=== PATIENT | female | born 1980 | race Caucasian/White ===

== ENCOUNTER 2024-02-26 23:26 | Inpatient (IN) | payer OTHER ==
[~2024-02-26 23:26] MED LIST: AMIODARONE 50 MG/ML 3 ML VIAL IV ONE; DEXTROSE 5% IN WATER 250 ML BAG ONE; EPINEPHrine 10 ML SYRINGE (0.1 MG/ML) ONE; NOREPINEPHRINE 1 MG/ML 4 ML VIAL IV ONE; SODIUM BICARB 8.4% 50 ML SYR (1 MEQ/ML) ONE; SODIUM CHLORIDE 0.9% 250 ML BAG ONE
[2024-02-26 23:29] LABS: Glucose,Whole Blood 407 mg/dL (70-110)
[2024-02-26] MEDS: SODIUM CHLORIDE 0.9% 500 ML 500 ML IV STA (23:41)
[2024-02-26] MEDS: ASPIRIN 300 MG SUPP RECTAL STA (23:43)
[2024-02-26 23:52] LABS: ALT 224 U/L (4-34); AST 278 U/L (14-36); African American GFR (CKD) 65 (>60 ml/min/1.73 sqM); Albumin 3.8 g/dL (3.5-5.0); Alkaline Phosphatase 64 U/L (38-126); Anion Gap 25 mmol/L; Blood Urea Nitrogen 9 mg/dL (7-17); Calcium 8.7 mg/dL (8.4-10.2); Chloride 109 mmol/L (98-107); Glucose 421 mg/dL (74-99); Non-African American GFR(CKD) 56 (>60 ml/min/1.73 sqM); Sodium 142 mmol/L (137-145); Total Bilirubin 0.4 mg/dL (0.2-1.3); Total Protein 6.2 g/dL (6.3-8.2)
[2024-02-26] MEDS ORDERED: ASPIRIN 300 MG SUPP RECTAL STA (23:53)
[2024-02-26 23:58] LABS: Carbon Dioxide 8 mmol/L (22-30)
[2024-02-27] LABS: Basophils # (A) 0.1 k/uL (0-0.2); Basophils % (A) 1 %; Eosinophils # (A) 0.2 k/uL (0-0.7); Eosinophils % (A) 3 %; HCT 48.6 % (34.0-46.0); HGB 14.3 gm/dL (11.4-16.0); Hypochromasia Marked; Lymphocytes % (A) 59 %; MCH 32.5 pg (25.0-35.0); MCHC 29.5 g/dL (31.0-37.0); MCV 110.2 fL (80.0-100.0); Macrocytosis Marked; Mean Platelet Volume 8.3; Monocytes # (A) 0.4 k/uL (0-1.0); Monocytes % (A) 5 %; Neutrophils # (A) 2.1 k/uL (1.3-7.7); Neutrophils % (A) 30 %; Partial Thromboplastin Time 41.8 sec (22.0-30.0); Platelet Count 189 k/uL (150-450); Prothrombin Time 10.5 sec (10.0-12.5); RBC 4.41 m/uL (3.80-5.40); RDW 13.5 % (11.5-15.5); WBC 6.8 k/uL (3.8-10.6)
[2024-02-27] MEDS: DEXTROSE 5% IN WATER 100 ML with AMIODARONE 150 MG IV ONE
[2024-02-27] MEDS: SODIUM CHLORIDE 0.9% 1,000 ML IV STA (00:13)
[2024-02-27] MEDS: EPINEPHrine 4 MG in DEXTROSE 5% IN WATER 250 ML IV ONE (00:13)
[2024-02-27] MEDS: IV FLUID CONTINUATION 1,000 ML IV ONE (00:13)
[2024-02-27] MEDS: NOREPINEPHRINE 4 MG in SODIUM CHLORIDE 0.9% 250 ML IV ONE (00:13)
[2024-02-27] MEDS: AMIODARONE 360 MG in DEXTROSE 5% IN WATER 200 ML IV ONE (00:13)
--- NOTE | 2024-02-27 00:15 | XR ---
EXAM: XR Chest, 1 View CLINICAL HISTORY: ITS.REASON XR Reason: cardiac arrest status post intubation TECHNIQUE: Frontal view of the chest. COMPARISON: No relevant prior studies available. FINDINGS: Lungs: Bibasilar opacities. Low lung volumes. Pleural space: No acute findings. No pneumothorax. Heart: No cardiomegaly. Bones/joints: No acute osseous abnormality. Tubes, lines and devices: Low-lying ET tube 8 mm above the mireya. This can be retracted 2 cm. Enteric tube coursing into the stomach. IMPRESSION: 1. Low-lying ET tube 8 mm above the mireya. This can be retracted 2 cm. 2. Bibasilar atelectasis/consolidation.
[2024-02-27] MEDS ORDERED: NALOXONE 0.4 MG/ML 1 ML VIAL IV PRN (00:18)
[2024-02-27] MEDS: ASPIRIN 325 MG TAB OG-TUBE ONE (00:23)
[2024-02-27] MEDS: LIDOCAINE 1% INJ 10MG/ML (20 ML MDV) SQ ONE (00:25)
--- NOTE | 2024-02-27 00:25 | CT ---
EXAM: CT Angiography Chest With Intravenous Contrast CLINICAL HISTORY: ITS.REASON CT Reason: Cardiac arrest TECHNIQUE: Axial computed tomographic angiography images of the chest with intravenous contrast. This CT exam was performed using one or more of the following dose reduction techniques: automated exposure control, adjustment of the mA and/or kV according to patient size, and/or use of iterative reconstruction technique. MIP reconstructed images were created and reviewed. COMPARISON: No relevant prior studies available. FINDINGS: Artifacts: Motion artifact. Pulmonary arteries: Enlarged main and central pulmonary arteries. Aorta: No acute findings. No thoracic aortic aneurysm. Lungs: There is some dependent atelectasis/consolidation in the upper and lower lobes. Mild hazy groundglass opacification in the lungs. Low lung volumes. Pleural space: Unremarkable. No significant effusion. No pneumothorax. Heart: Mild coronary artery calcification. Mediastinum: Mediastinal lipomatosis. Bones/joints: No acute fracture. No dislocation. Soft tissues: Unremarkable. Lymph nodes: Unremarkable. No enlarged lymph nodes. Tubes, lines and devices: ET tube 2.3 cm above the mireya. Enteric tube coursing into stomach. IMPRESSION: 1. There is some dependent atelectasis/consolidation in the upper and lower lobes. 2. No pulmonary embolism. 3. Findings suggesting pulmonary arterial hypertension.
[2024-02-27] MEDS: IOPAMIDOL-370 100ML BTL INJ ONE (00:34)
--- NOTE | 2024-02-27 00:42 | P.CARDCATH ---
Date of Procedure: 02/27/24 Description of Procedure: DIAGNOSTIC CORONARY ANGIOGRAPHY and LEFT HEART CATH REPORT PROCEDURES PERFORMED: Left heart catheterization Selective coronary angiography Moderate conscious sedation 9 mins Right radial access INDICATION: [id number] cardiac arrest, ventricular tachycardia, torsades CONSENT: I have explained the procedural steps of above-mentioned procedures in layman's terms to the patient. I discussed the risks (including but not limited to stroke, emergent vascular or cardiac surgery or ), benefits and alternative therapies for the above-mentioned procedure. I discussed the risks of sedation/analgesia and blood product administration (if indicated). The patient has indicated understanding and acceptance of these risks. Conscious Sedation: Patient's ECG, heart rate, blood pressure, pulse oximetry were monitored throughout the duration of procedure under my direct supervision. Patient is on propofol drip and on vent support. No further medications were administered for sedation other than propofol drip.. Total duration of moderate concious sedation 9 minutes. PROCEDURE: After explaining the risks, benefits and alternatives of the above mentioned procedures in detail to the patient, informed consent was obtained. Patient was taken to the catheterization lab, prepped and draped in usual sterile fashion using universal precuations. Ultrasound was used to identify the radial artery. 1% lidocaine was infiltrated over the right radial artery. A 6-Barbadian sheath was placed and secured in the right radial artery using modified Seldinger technique. The sheath was flushed and 5 mg verapamil was administered intra-arterially. J tipped wire was advanced under fluoroscopic guidance. Once the wire tip reached aortic root 6000 units of IV heparin was given. Over the wire JR4 diagnostic catheter was advanced. The wire in place the catheter was manipulated to cross the aortic valve and entered into LV under fluoroscopy guidance. The wire was removed and the catheter was flushed. LV pressures were obtained and pullback was performed under fluoroscopy. Catheter was manipulated to selectively engage the right coronary ostium. Right coronary angiography was performed in different angiographic projections. The JR4 diagnostic catheter was exchanged for a JL 3.5 diagnostic catheter over the J-wire. The wire was removed, catheter was flushed and manipulated under fluoroscopy to selectively engaged the left coronary ostium. Left coronary angioplasty was performed in different angiographic projections. Catheter was removed over the wire. Radial sheath was flushed. The right radial sheath was removed and a TR band was placed with excellent p atent hemostasis was achieved. The patient tolerated the procedure well. Patient was transported back to the post catheterization holding area in stable condition. Angiographic images were reviewed in detail. HEMODYNAMICS: Aortic Pressure: 95/50 mmHg. LV pressure: 98/10 mmHg. LVEDP 24 mmHg. There was no significant gradient across the aortic valve. SELECTIVE CORONARY ARTERIOGRAPHY: LEFT MAIN: The left main is short and large caliber vessel. It bifurcates into the LAD and circumflex. Left main appears angiographically normal. LEFT ANTERIOR DESCENDING CORONARY ARTERY: LAD is a large caliber vessel terminates before reaching the apex. Proximal LAD appears angiographically patent. Mid LAD appears angiographically patent. Distal LAD appears angiographically patent. LAD gives rise to medium diagonal branches appears angiographically patent LEFT CIRCUMFLEX CORONARY ARTERY: It is nondominant vessel. Left circumflex is a moderate caliber vessel. It appears angiographically normal. LCx gives rise to OM branches appears angiographically patent. RIGHT CORONARY ARTERY: Dominant vessel. The right coronary artery is a large caliber vessel which gives PDA and PLV branch. RCA is angiographically patent. It gives rise to a large PDA branch which reaches up to the apex. It is angiographically patent. IMPRESSION: Angiographically patent coronary arteries as described above. Elevated LVEDP Nonischemic ventricular tachycardia [id number] cardiac arrest Torsades PLAN: Vent support and IV pressors. Supportive ICU care Maintain potassium at 4, magnesium at 2. Continue amiodarone drip as per the protocol. Monitor telemetry Obtain echocardiogram Performing Physician Dante Villegas MD, FACC, RPVI Thank you for allowing [facility] to participate in this patient's care. Feel free to reach out in case of any followup questions.
--- NOTE | 2024-02-27 00:56 | ED ---
General Adult HPI - General Chief complaint: Cardiac Arrest/CPR Stated complaint: unresponsive Source: family, EMS, RN notes reviewed, old records reviewed Mode of arrival: EMS Limitations: altered mental status - History of Present Illness Initial comments: 43-year-old female presents as [id number] cardiac arrest. There was prolonged prehospital resuscitation including CPR, BVM with laryngeal mask airway. There was initial rhythm according to EMS was V-fib and the patient did receive multiple shocks. She had intermittent episodes of PEA arrest with an organized rhythm with pulse during transport. There was significant prehospital downtime prior to arrival. Upon arrival the patient is cyanotic with fixed pupils with CPR in progress. No significant reported medical history. It had been reported that the patient had been drinking with friends earlier in the evening she had come home and family had heard her collapse in the other room. Upon arrival there was concern that the patient had vomited and CPR was initiated by the daughter. Paramedics had ventricular V-fib as well as torsades as well as PEA during transport - Related Data Allergies Allergy/AdvReac Type Severity Reaction Status Date / Time Unable to Assess Allergy Verified 02/26/24 23:38 Review of Systems ROS Statement: Those systems with pertinent positive or pertinent negative responses have been documented in the HPI. ROS Other: All systems not noted in ROS Statement are negative. General Exam Limitations: no limitations General appearance: other (Cyanotic, no signs of life) Eye exam: Absent: PERRL (Pupils are fixed and dilated) ENT exam: Present: other (Copious amounts of vomit and retained food in the oropharynx) Respiratory exam: Present: respiratory distress, other (Decreased breath sounds with BVM) Cardiovascular Exam: Present: other (No spontaneous heart sounds) GI/Abdominal exam: Present: distended Neurological exam: Present: other (No spontaneous movement, no spontaneous respiration, no central reflexes) Skin exam: Present: cyanosis Course Vital Signs 02/26/24 02/27/24 02/27/24 23:30 00:32 01:23 Fraction of 100 100 100 Inspired Oxygen (FIO2) 02/27/24 01:30 Fraction of 60 Inspired Oxygen (FIO2) Procedures - [place] Protocol (Time Out) Patient Identification (2 identifiers required): Chart, Verbal, Arm Band, Name, Birthdate Patient/Legal Scaffolding Helper has Confirmed: Identity, Procedure, Consent Site Marked: Not Applicable - Central Line Placement Right Femoral Consent Obtained: emergent situation Patient Placed on Monitor/Pulse Ox: Yes MD Prep: mask, gloves Central Line Prep: Chlorhexidine scrub Ultrasound Used for Placement: No Central Line Lumen Inserted: triple Bloods Obtained for Lab: No Central Line Position: good blood return, all ports aspirated, flushed, capped, sutured in place with nylon Dressing Applied: Tegaderm Patient Tolerated Procedure: well Complications: none - Intubation Laryngoscope: Brian Size: 3 ET Tube Size: 7.5 ET Tube Uncuffed: No Tube Secured Depth (cm): 21 Tube Secured Location: lips Tube Placement Confirmation: visualized tube passing through cords, equal breath sounds bilaterally, no breath sounds over epigastrium, confirmation by capnometry Patient Tolerated Procedure: well Additional Comments: Copious amounts of food and vomit in the airway Medical Decision Making - Medical Decision Making Was pt. sent in by a medical professional or institution (, PA, CUSTOMER SOLUTIONS SUPERVISOR, urgent care, hospital, or long-term...) When possible be specific @ -No Did you speak to anyone other than the patient for history (EMS, parent, family, police, friend...)? What history was obtained from this source @ -No Did you review nursing and triage notes (agree or disagree)? Why? @ -I reviewed and agree with nursing and triage notes Were old charts reviewed (outside hosp., previous admission, EMS record, old EKG, old radiological studies, urgent care reports/EKG's, long-term records)? Report findings @ -No old charts were reviewed Differential Diagnosis (chest pain, altered mental status, abdominal pain women, abdominal pain men, vaginal bleeding, weakness, fever, dyspnea, syncope, headache, dizziness, GI bleed, back pain, seizure, CVA, palpatations, mental hea lth, musculoskeletal)? @ -Not applicable EKG interpreted by me (3pts min.). @ -Initial EKG after ROSC at [address] showing atrial fibrillation with ST segment elevation in aVR and diffuse T wave inversion possible ST segment elevation in lead III ventricular rate of 107, QRS duration 125, QTc 378 X-rays interpreted by me (1pt min.). @ -Single view chest x-ray after intubation shows ET tube within the trachea no pneumothorax present CT interpreted by me (1pt min.). @ -Patient taken for CT brain and CT angiography of the chest prior to Acute Specialist. U/S interpreted by me (1pt. min.). @ -None done What testing was considered but not performed or refused? (CT, X-rays, U/S, labs)? Why? @ -None What meds were considered but not given or refused? Why? @ -None Did you discuss the management of the patient with other professionals (professionals i.e. Dr., PA, CUSTOMER SOLUTIONS SUPERVISOR, lab, RT, psych nurse, social sciences research scientist, local delivery truck driver, teacher, engineering officer, case hardener)? Give summary @Case discussed with the health services director Dr. Villegas, the spring layer Dr. Johnson and the admitting team, Ingrid stout for [facility]. Was smoking cessation discussed for >3mins.? @ -No Was critical care preformed (if so, how long)? @ -40 minutes Were there social determinants of health that impacted care today? How? (Homelessness, low income, unemployed, alcoholism, drug addiction, transportation, low edu. Level, literacy, decrease access to med. care, nursing home, rehab)? @ -No Was there de-escalation of care discussed even if they declined (Discuss DNR or withdrawal of care, Hospice)? DNR status @ -No What co-morbidities impacted this encounter? (DM, HTN, Smoking, COPD, CAD, Cancer, CVA, ARF, Chemo, Hep., AIDS, mental health diagnosis, sleep apnea, morbid obesity)? @ -None Was patient admitted / discharged? Hospital course, mention meds given and route, prescriptions, significant lab abnormalities, going to OR and other pertinent info. @ -43-year-old female with [id number] cardiac arrest. Upon arrival the patient is apneic and pulseless in asystole. CPR is continued with the Sumanth device. Definitive airway is established immediately upon arrival to retained vomit and large amounts of food. Resuscitation is performed with ACLS guidelines. Patient received multiple doses of medication please see the nursing documentation for complete cardiac arrest medications. There is return of spontaneous circulation and organized rhythm, EKG at that time shows diffuse ST segment depression with ST segment elevation in aVR. Given EKG changes and V-fib arrest the Acute Specialist is activated and the patient is taken urgently for heart cath. There is some delay in getting to the Acute Specialist due to a repeat episode of PEA cardiac arrest as well as the need for CT imaging of the brain and chest. Patient requires norepinephrine as well as epinephrine for blood pressure support. Family is informed of the poor prognosis. Undiagnosed new problem with uncertain prognosis? @ -No Drug Therapy requiring intensive monitoring for toxicity (Heparin, Nitro, Insulin, Cardizem)? @ -No Were any procedures done? @ -[Yes, intubation and central line Diagnosis/symptom? @ -Cardiac arrest, V-fib, torsades, PEA with aspiration Acute, or Chronic, or Acute on Chronic? @ -[Acute Uncomplicated (without systemic symptoms) or Complicated (systemic symptoms)? @ -[Complicated Side effects of treatment? @ -[No Exacerbation, Progression, or Severe Exacerbation? @ -No Poses a threat to life or bodily function? How? (Chest pain, USA, IA, pneumonia, PE, COPD, DKA, ARF, appy, cholecystitis, CVA, Diverticulitis, Homicidal, Suicidal, threat to staff... and all critical care pts) @ -Yes, prolonged [id number] cardiac arrest. - Lab Data Result diagrams: 02/26/24 23:28 02/26/24 23:28 Lab Results 02/26/24 02/26/24 02/26/24 Range/Units 23:28 23:28 23:28 WBC 6.8 (3.8-10.6) k/uL RBC 4.41 (3.80-5.40) m/uL Hgb 14.3 (11.4-16.0) gm/dL Hct 48.6 H (34.0-46.0) % MCV 110.2 H (80.0-100.0) fL MCH 32.5 (25.0-35.0) pg MCHC 29.5 L (31.0-37.0) g/dL RDW 13.5 (11.5-15.5) % Plt Count 189 (150-450) k/uL MPV 8.3 Neutrophils % 30 % Lymphocytes % 59 % Monocytes % 5 % Eosinophils % 3 % Basophils % 1 % Neutrophils # 2.1 (1.3-7.7) k/uL Lymphocytes # 4.0 (1.0-4.8) k/uL Monocytes # 0.4 (0-1.0) k/uL Eosinophils # 0.2 (0-0.7) k/uL Basophils # 0.1 (0-0.2) k/uL Manual Slide Review Performed Polychromasia Present Hypochromasia Marked Macrocytosis Marked A Tear Drop Cells Present PT 10.5 (10.0-12.5) sec INR 1.0 (<1.2) APTT 41.8 H (22.0-30.0) sec Sodium (137-145) mmol/L Potassium (3.5-5.1) mmol/L Chloride (98-107) mmol/L Carbon Dioxide (22-30) mmol/L Anion Gap mmol/L BUN (7-17) mg/dL Creatinine (0.52-1.04) mg/dL Est GFR (CKD-EPI)AfAm (>60 ml/min/1.73 sqM) Est GFR (CKD-EPI)NonAf (>60 ml/min/1.73 sqM) Glucose (74-99) mg/dL POC Glucose (mg/dL) 407 H (70-110) mg/dL POC Glu Statistician Applied ID Jose David Tirado Calcium (8.4-10.2) mg/dL Magnesium (1.6-2.3) mg/dL Total Bilirubin (0.2-1.3) mg/dL AST (14-36) U/L ALT (4-34) U/L Alkaline Phosphatase (38-126) U/L Troponin I (0.000-0.034) ng/mL Total Protein (6.3-8.2) g/dL Albumin (3.5-5.0) g/dL 02/26/24 02/26/24 Range/Units 23:28 23:28 WBC (3.8-10.6) k/uL RBC (3.80-5.40) m/uL Hgb (11.4-16.0) gm/dL Hct (34.0-46.0) % MCV (80.0-100.0) fL MCH (25.0-35.0) pg MCHC (31.0-37.0) g/dL RDW (11.5-15.5) % Plt Count (150-450) k/uL MPV Neutrophils % % Lymphocytes % % Monocytes % % Eosinophils % % Basophils % % Neutrophils # (1.3-7.7) k/uL Lymphocytes # (1.0-4.8) k/uL Monocytes # (0-1.0) k/uL Eosinophils # (0-0.7) k/uL Basophils # (0-0.2) k/uL Manual Slide Review Polychromasia Hypochromasia Macrocytosis Tear Drop Cells PT (10.0-12.5) sec INR (<1.2) APTT (22.0-30.0) sec Sodium 142 (137-145) mmol/L Potassium 4.0 (3.5-5.1) mmol/L Chloride 109 H (98-107) mmol/L Carbon Dioxide 8 L* (22-30) mmol/L Anion Gap 25 mmol/L BUN 9 (7-17) mg/dL Creatinine 1.19 H (0.52-1.04) mg/dL Est GFR (CKD-EPI)AfAm 65 (>60 ml/min/1.73 sqM) Est GFR (CKD-EPI)NonAf 56 (>60 ml/min/1.73 sqM) Glucose 421 H (74-99) mg/dL POC Glucose (mg/dL) (70-110) mg/dL POC Glu Statistician Applied ID Calcium 8.7 (8.4-10.2) mg/dL Magnesium 5.0 H* (1.6-2.3) mg/dL Total Bilirubin 0.4 (0.2-1.3) mg/dL AST 278 H (14-36) U/L ALT 224 H (4-34) U/L Alkaline Phosphatase 64 (38-126) U/L Troponin I 0.039 H* (0.000-0.034) ng/mL Total Protein 6.2 L (6.3-8.2) g/dL Albumin 3.8 (3.5-5.0) g/dL Critical Care Time Critical Care Time: Yes Total Critical Care Time: 40 Disposition Clinical Impression: Cardiac arrest, Ventricular fibrillation, Respiratory failure Disposition: ADMITTED IP TO THIS HOSP Condition: Serious Is patient prescribed a controlled substance at d/c from ED?: No Time of Disposition: 00:20
[2024-02-27 01:01] LABS: Glucose,Whole Blood 383 mg/dL (70-110)
--- NOTE | 2024-02-27 01:04 | P.CRDCN ---
History of Present Illness Consult date: 02/27/24 History of present illness: HISTORY OF PRESENTING ILLNESS Patient is a 43-year-old female with past medical history of ovarian cyst, recently dealing with abdominal pain, obesity, family history of premature coronary artery disease in father, no other cardiovascular history was presented to [facility] for [id number] cardiac arrest. History is obtained from the patient's daughter. Patient's daughter reports that lately patient has been significantly under stress from work. For last couple of days she has been complaining of abdominal pain. She was recently diagnosed with ovarian cyst which was managed conservatively. Today in the evening she went out to have drinks with her friends. When she came back she had some more wine at home. Apparently patient was in the kitchen and patient's daughter was in her room. Patient's daughter heard a thump so she went to the kitchen to find that the patient was lying on the floor and started vomiting. The daughter activated the EMS, made her left lateral and started doing CPR. Apparently the downtime was around 35 to 40 minutes. EMS was able to get a pulse after 1 round of defibrillation, ACLS and mechanical chest compressions. In route to EMS she had a torsades for which she received magnesium and defibrillation. EMS rhythm strip shows torsades EMS ECG after the torsade shows sinus rhythm with elevated J-point. ECG in the hospital shows diffuse ST depressions with ST elevations in aVR and lead III. CT head did not show any brain bleed. CT chest did not show any saddle pulm embolism. Chest x-ray did not show widened mediastinum. Cardiology was consulted, patient was evaluated on an emergent basis and was taken to [facility]. REVIEW OF SYSTEMS Could not be obtained as patient is intubated and sedated PHYSICAL EXAMINATION Vital signs reviewed. Head: Normocephalic. Eyes: Sclerae nonicteric. Neck: Brisk carotid upstroke, no jugular venous distention. Lungs: ET tube in place, vent support, appropriate air entry in bilateral lung benavides Heart: Regular rate and rhythm, S1-S2 audible, no murmur or rub. Abdomen: Soft nontender, positive bowel sounds. Extremities: No edema, intact distal pulses. Neuro: Under sedation. Detailed neuro exam was not performed. ASSESSMENT Gaj-aw-rryvmhab cardiac arrest with prolonged downtime of 30 to 40 minutes Ventilator dependent respiratory failure Aspiration pneumonia from vomiting Pulseless ventricular tachycardia, likely hypoxia and acidosis driven Torsades De Pointes Ovarian cyst with abdominal pain for last few days Alcohol use before cardiac arrest. PLAN Plan for emergent cardiac authorization Further recommendations to follow Dante Villegas MD, FACC, RPVI Medications and Allergies Allergies Allergy/AdvReac Type Severity Reaction Status Date / Time Unable to Assess Allergy Verified 02/26/24 23:38 Physical Exam Vitals: Vital Signs FiO2 02/27/24 00:32 100 02/26/24 23:30 100 Intake and Output 02/26/24 02/26/24 02/27/24 14:59 22:59 06:59 Other: Weight 97 kg Results 02/26/24 23:28 02/26/24 23:28 Cardiac Enzymes 02/26/24 02/26/24 02/26/24 Range/Units 23:28 23:28 23:28 WBC 6.8 (3.8-10.6) k/uL RBC 4.41 (3.80-5.40) m/uL Hgb 14.3 (11.4-16.0) gm/dL Hct 48.6 H (34.0-46.0) % MCV 110.2 H (80.0-100.0) fL MCH 32.5 (25.0-35.0) pg MCHC 29.5 L (31.0-37.0) g/dL RDW 13.5 (11.5-15.5) % Plt Count 189 (150-450) k/uL MPV 8.3 Hypochromasia Marked Macrocytosis Marked A PT 10.5 (10.0-12.5) sec INR 1.0 (<1.2) APTT 41.8 H (22.0-30.0) sec Sodium (137-145) mmol/L Potassium (3.5-5.1) mmol/L Chloride (98-107) mmol/L Carbon Dioxide (22-30) mmol/L Anion Gap mmol/L BUN (7-17) mg/dL Creatinine (0.52-1.04) mg/dL Est GFR (CKD-EPI)AfAm (>60 ml/min/1.73 sqM) Est GFR (CKD-EPI)NonAf (>60 ml/min/1.73 sqM) Glucose (74-99) mg/dL POC Glucose (mg/dL) 407 H (70-110) mg/dL POC Glu [place] ID [facility] [place] Calcium (8.4-10.2) mg/dL Magnesium (1.6-2.3) mg/dL Total Bilirubin (0.2-1.3) mg/dL AST (14-36) U/L ALT (4-34) U/L Alkaline Phosphatase (38-126) U/L Troponin I (0.000-0.034) ng/mL Total Protein (6.3-8.2) g/dL Albumin (3.5-5.0) g/dL 02/26/24 02/26/24 Range/Units 23:28 23:28 WBC (3.8-10.6) k/uL RBC (3.80-5.40) m/uL Hgb (11.4-16.0) gm/dL Hct (34.0-46.0) % MCV (80.0-100.0) fL MCH (25.0-35.0) pg MCHC (31.0-37.0) g/dL RDW (11.5-15.5) % Plt Count (150-450) k/uL MPV Hypochromasia Macrocytosis PT (10.0-12.5) sec INR (<1.2) APTT (22.0-30.0) sec Sodium 142 (137-145) mmol/L Potassium 4.0 (3.5-5.1) mmol/L Chloride 109 H (98-107) mmol/L Carbon Dioxide 8 L* (22-30) mmol/L Anion Gap 25 mmol/L BUN 9 (7-17) mg/dL Creatinine 1.19 H (0.52-1.04) mg/dL Est GFR (CKD-EPI)AfAm 65 (>60 ml/min/1.73 sqM) Est GFR (CKD-EPI)NonAf 56 (>60 ml/min/1.73 sqM) Glucose 421 H (74-99) mg/dL POC Glucose (mg/dL) (70-110) mg/dL POC Glu W[place]er ID Calcium 8.7 (8.4-10.2) mg/dL Magnesium 5.0 H* (1.6-2.3) mg/dL Total Bilirubin 0.4 (0.2-1.3) mg/dL AST 278 H (14-36) U/L ALT 224 H (4-34) U/L Alkaline Phosphatase 64 (38-126) U/L Troponin I 0.039 H* (0.000-0.034) ng/mL Total Protein 6.2 L (6.3-8.2) g/dL Albumin 3.8 (3.5-5.0) g/dL Coagulation 02/26/24 Range/Units 23:28 PT 10.5 (10.0-12.5) sec APTT 41.8 H (22.0-30.0) sec CBC 02/26/24 Range/Units 23:28 WBC 6.8 (3.8-10.6) k/uL RBC 4.41 (3.80-5.40) m/uL Hgb 14.3 (11.4-16.0) gm/dL Hct 48.6 H (34.0-46.0) % Plt Count 189 (150-450) k/uL Comprehensive Metabolic Panel 02/26/24 Range/Units 23:28 Sodium 142 (137-145) mmol/L Potassium 4.0 (3.5-5.1) mmol/L Chloride 109 H (98-107) mmol/L Carbon Dioxide 8 L* (22-30) mmol/L BUN 9 (7-17) mg/dL Creatinine 1.19 H (0.52-1.04) mg/dL Glucose 421 H (74-99) mg/dL Calcium 8.7 (8.4-10.2) mg/dL AST 278 H (14-36) U/L ALT 224 H (4-34) U/L Alkaline Phosphatase 64 (38-126) U/L Total Protein 6.2 L (6.3-8.2) g/dL Albumin 3.8 (3.5-5.0) g/dL Current Medications Generic Name Dose Route Start Last Admin Trade Name Freq PRN Reason Stop Dose Admin Sodium Chloride 1,000 mls @ 100 mls/hr 02/26/24 23:34 02/27/24 00:13 Saline 0.9% IV 02/27/24 09:33 0 mls .Q10H STA Administration Amiodarone HCl 360 mg/ 200 mls @ 33.333 mls/hr 02/26/24 23:55 02/27/24 00:13 Dextrose/Water IV 02/27/24 05:54 0 mls .Q6H ONE Administration Protocol 1 MG/MIN Amiodarone HCl 450 mg/ 250 mls @ 16.667 mls/hr 02/27/24 06:00 Dextrose/Water IV 02/27/24 23:59 .Q15H EBENEZER Protocol 0.5 MG/MIN Norepinephrine Bitartrate 4 mg 254 mls @ 11.087 mls/hr 02/26/24 23:55 02/27/24 00:13 / Sodium Chloride IV 02/27/24 22:49 0 mls .[id number] ONE Administration Protocol 0.03 MCG/KG/MIN Epinephrine HCl 4 mg/ Dextrose 252 mls @ 11 mls/hr 02/26/24 23:57 02/27/24 00:13 /Water IV 02/27/24 22:51 0 mls .[id number] ONE Administration Protocol 0.03 MCG/KG/MIN Ampicillin Sodium/Sulbactam 100 mls @ 200 mls/hr 02/27/24 00:30 Sodium 3 gm/ Sodium Chloride IVPB Q8HR EBENEZER Protocol Naloxone HCl 0.2 mg 02/27/24 00:18 Naloxone 0.4 Mg/Ml 1 Ml Vial IV Q2M PRN Opioid Reversal Intake and Output 02/26/24 02/26/24 02/27/24 14:59 22:59 06:59 Other: Weight 97 kg Patient Weight 02/27/24 06:59 Weight 97 kg 02/26/24 23:28 02/26/24 23:28
[2024-02-27 01:10] LABS: Polychromasia Present; Tear Drop Cells Present
[2024-02-27 01:15] LABS: ABG HCO3 11 mmol/L (21-25); ABG Oxygen Saturation 96.2 % (94-97); ABG PCO2 54 mmHg (35-45); ABG PO2 134 mmHg (83-108); ABG TCO2 13 mmol/L (19-24); Allen Test Performed? Yes
[2024-02-27 01:19] LABS: ABG PH 6.91 (7.35-7.45)
[2024-02-27] MEDS: SODIUM BICARB 8.4% 50 ML SYR (1 MEQ/ML) IV STA (01:43)
[2024-02-27] MEDS: EPINEPHrine 4 MG in DEXTROSE 5% IN WATER 250 ML IV SCH (01:50)
[2024-02-27] MEDS: NOREPINEPHRINE 4 MG in SODIUM CHLORIDE 0.9% 250 ML IV SCH (01:51)
[2024-02-27] MEDS: NOREPINEPHRINE 32 MG in SODIUM CHLORIDE 0.9% 218 ML IV SCH (02:00)
[2024-02-27 02:16] LABS: HCT 43.9 % (34.0-46.0); HGB 13.6 gm/dL (11.4-16.0); Hypochromasia Marked; MCH 32.2 pg (25.0-35.0); MCHC 30.9 g/dL (31.0-37.0); Macrocytosis Slight; Mean Platelet Volume 7.7; Platelet Count 237 k/uL (150-450); RBC 4.22 m/uL (3.80-5.40); RDW 13.4 % (11.5-15.5)
[2024-02-27] MEDS: AMPICILLIN-SULBACTAM 3 GM in SODIUM CHLORIDE 0.9% 100 ML IVPB SCH (02:33)
[2024-02-27 02:46] LABS: Magnesium 4.3 mg/dL (1.6-2.3)
[2024-02-27 02:47] LABS: ALT 461 U/L (4-34); AST 719 U/L (14-36); African American GFR (CKD) 56 (>60 ml/min/1.73 sqM); Albumin 3.3 g/dL (3.5-5.0); Alkaline Phosphatase 187 U/L (38-126); Anion Gap 23 mmol/L; Blood Urea Nitrogen 11 mg/dL (7-17); Calcium 7.2 mg/dL (8.4-10.2); Carbon Dioxide 12 mmol/L (22-30); Chloride 104 mmol/L (98-107); Glucose 393 mg/dL (74-99); MCV 104.1 fL (80.0-100.0); Non-African American GFR(CKD) 49 (>60 ml/min/1.73 sqM); Potassium 3.8 mmol/L (3.5-5.1); Sodium 139 mmol/L (137-145); Total Bilirubin 0.3 mg/dL (0.2-1.3); Total Protein 5.7 g/dL (6.3-8.2)
[2024-02-27] MEDS: VASOPRESSIN 20 UNIT in SODIUM CHLORIDE 0.9% 50 ML IV SCH (03:48)
[2024-02-27 04:12] LABS: Band Neutrophils % 2 %; Eosinophils # (M) 0.64 k/uL (0-0.7); Lymphocytes # (M) 10.27 k/uL (1.0-4.8); Monocytes # (M) 0.64 k/uL (0-1.0); Myelocytes # (M) 0.21 k/uL (0); Myelocytes % 1 %; Neutrophils % (M) 46 %; Nucleated Red Blood Cells 1 /100 WBC (0-0); Total Cells Counted 200; WBC 21.4 k/uL (3.8-10.6)
[2024-02-27 04:14] LABS: Tear Drop Cells Present
[2024-02-27] MEDS: AMIODARONE 450 MG in DEXTROSE 5% IN WATER 250 ML IV SCH (05:45)
[2024-02-27 06:12] LABS: ABG Base Excess -15.3 mmol/L; ABG HCO3 16 mmol/L (21-25); ABG Oxygen Saturation 77.3 % (94-97); ABG PCO2 57 mmHg (35-45); ABG TCO2 18 mmol/L (19-24); Allen Test Performed? Yes
[2024-02-27 06:13] LABS: NT-Pro-B-Type Natriuretic Pept 111 pg/mL
[2024-02-27 06:15] LABS: African American GFR (CKD) 47 (>60 ml/min/1.73 sqM); Anion Gap 19 mmol/L; Blood Urea Nitrogen 14 mg/dL (7-17); Calcium 6.9 mg/dL (8.4-10.2); Carbon Dioxide 14 mmol/L (22-30); Chloride 104 mmol/L (98-107); Magnesium 3.6 mg/dL (1.6-2.3); Non-African American GFR(CKD) 41 (>60 ml/min/1.73 sqM); Potassium 2.9 mmol/L (3.5-5.1); Sodium 137 mmol/L (137-145)
[2024-02-27 06:31] LABS: ABG PH 7.05 (7.35-7.45)
[2024-02-27 06:31] LABS: Glucose 527 mg/dL (74-99)
[2024-02-27 06:32] LABS: ABG PO2 55 mmHg (83-108)
[2024-02-27] MEDS ORDERED: DEXTROSE 50% SYRINGE 50 ML IVP PRN ×2 (06:40)
[2024-02-27] MEDS: DEXTROSE 5% IN WATER 1,000 ML with SODIUM BICARB (1 MEQ/ML) 150 ML IV SCH (07:04)
--- NOTE | 2024-02-27 07:08 | CT ---
EXAM: CT Head Without Intravenous Contrast CLINICAL HISTORY: carduac arrest TECHNIQUE: Axial computed tomography images of the head/brain without intravenous contrast. CTDI is 49.1 mGy and DLP is 1106.2 mGy-cm. This CT exam was performed using one or more of the following dose reduction techniques: automated exposure control, adjustment of the mA and/or kV according to patient size, and/or use of iterative reconstruction technique. COMPARISON: No relevant prior studies available. FINDINGS: Brain: Diffuse loss of ochoa-white differentiation in the cerebrum. No hemorrhage. Ventricles: No acute findings. No ventriculomegaly. Bones/joints: Unremarkable. No acute fracture. Soft tissues: Unremarkable. Sinuses: Mucosal thickening ethmoid air cells, maxillary sinuses and sphenoid sinuses. Mastoid air cells: Unremarkable as visualized. No mastoid effusion. IMPRESSION: Evidence of severe diffuse hypoxic ischemic injury.
[2024-02-27 07:15] LABS: Appearance,Urine Cloudy (Clear); Bacteria,Urine Rare /hpf; Bilirubin,Urine Negative (Negative); Blood,Urine Moderate (Negative); Color,Urine Colorless; Glucose,Urine (UA) 3+ (Negative); Hyphae Yeast, Urine Rare /hpf; Ketones,Urine Negative (Negative); Leukocyte Esterase,Urine Negative (Negative); Mucus,Urine Rare /hpf; Nitrite,Urine Negative (Negative); Protein,Urine 2+ (Negative); RBC,Urine 5 /hpf (0-5); Renal Epithelial Cells,Urine 6 /hpf (0); Specific Gravity,Urine 1.014 (1.001-1.035); Squamous Epithelial Cell,Urine <1 /hpf (0-4); Urobilinogen,Urine <2.0 mg/dL (<2.0); WBC,Urine 7 /hpf (0-5)
[2024-02-27] MEDS ORDERED: Magnesium Replacement Protocol 1 EACH MISC MISCELLANE PRN (07:28)
[2024-02-27] MEDS ORDERED: Potassium Replacement Protocol 1 EACH MISC MISCELLANE PRN (07:28)
--- NOTE | 2024-02-27 07:44 | P.PN ---
Subjective Progress Note Date: 02/27/24 PROGRESS NOTE The patient is a 43-year-old female with a history of smoking who presented with cardiac arrest, ventricle fibrillation and torsade. She is intubated. She underwent coronary angiography yesterday by Dr. Villegas and had no evidence of obstructive CAD. She is on norepinephrine,, vasopressin, IV amiodarone. I spoke to her family and the patient has no prior cardiac history and no history of drug use. She is a smoker and drinks about 1 to 2 glasses of chaparro a day with no changes. She has no history of documented arrhythmia in the past. She has a family history of CAD. Her downtime was estimated to be 35 to 40 minutes. Her urinary output has been poor Medications: IV vasopressin, IV amiodarone, norepinephrine, PHYSICAL EXAMINATION: Blood pressure 115/60 heart rate 104, intubated LUNGS: Clear to auscultation HEART: Regular rate and rhythm, S1, S2. No S3. No systolic murmur ABDOMEN: Soft, nontender, no organomegaly EXTREMETIES: No edema, right radial catheter noted LAB: pH yesterday 6.9 earlier this morning 7.05. Hemoglobin 13.6. Potassium 2.9, BUN 14, creatinine 1.56. Plasma lactic acid 10.4. AST 719, ALT 461. CT scan of the head showed evidence of severe diffuse hypoxic ischemic injury IMPRESSION: 1. [id number] cardiac arrest with prolonged downtime and evidence of ventricular fibrillation and torsades. Etiology unclear, no evidence of obstructive coronary disease 2. Respiratory failure 3. Severe acidosis 4. Acute kidney injury 5. Acute liver injury 6. History of smoking PLAN: 1. Continue supportive care 2. Obtain an echocardiogram with Doppler 3. Follow renal functions 4. Continue IV amiodarone 5. Obtain neuroconsultation 6. Discussed the findings with her family 7. Prognosis is poor because of the acidosis and the prolonged downtime Objective - Vital Signs Vital signs: Vital Signs Temp 92.3 F L 02/27/24 05:00 Pulse 104 H 02/27/24 07:00 Resp 30 H 02/27/24 07:00 BP 77/26 02/27/24 07:00 Pulse Ox 83 L 02/27/24 07:00 FiO2 100 02/27/24 05:00 Intake & Output 02/26/24 02/27/24 02/27/24 18:59 06:59 18:59 Intake Total 1396.197 315.922 Output Total 40 0 Balance 1356.197 315.922 Weight 98.3 kg Intake: IV 476 3 pressure bag 12 3 Intake, IV Titration 920.197 312.922 Amount Ampicillin-Sulbactam 3 gm 100 In Sodium Chloride 0.9% 100 ml @ 200 mls/hr IVPB Q8HR EBENEZER Rx#:[id number] Dextrose 5% in Water 1, 75 000 ml @ 75 mls/hr IV . [id number] EBENEZER with Sodium Bicarb (1 Meq/ml) 150 ml Rx#:[id number] EPINEPHrine 4 mg In 295.469 137.922 Dextrose 5% in Water 250 ml @ 0.03 MCG/KG/MIN 10. 913 mls/hr IV .[id number] EBENEZER Rx#:[id number] Norepinephrine 32 mg In 13.641 Sodium Chloride 0.9% 218 ml @ 0.03 MCG/KG/MIN 1. 364 mls/hr IV .Q24H EBENEZER Rx#:[id number] Norepinephrine 4 mg In 11.087 Sodium Chloride 0.9% 250 ml @ 0.03 MCG/KG/MIN 11. 087 mls/hr IV .[id number] EBENEZER Rx#:[id number] Sodium Chloride 0.9% 1, 500 100 000 ml @ 100 mls/hr IV . Q10H STA Rx#:[id number] Output: Urine 40 0 Other: Voiding Method Indwelling Catheter ABP, PAP, CO, CI - Last Documented Arterial Blood Pressure 115/62 - Labs CBC & Chem 7: 02/27/24 01:59 02/27/24 05:30 Labs: Abnormal Lab Results - Last 24 Hours (Table) 02/26/24 02/26/24 02/26/24 Range/Units 23:28 23:28 23:28 WBC (3.8-10.6) k/uL Hct 48.6 H (34.0-46.0) % MCV 110.2 H (80.0-100.0) fL MCHC 29.5 L (31.0-37.0) g/dL Neutrophils # (Manual) (1.3-7.7) k/uL Lymphocytes # (Manual) (1.0-4.8) k/uL Myelocytes # (Manual) (0) k/uL Nucleated RBCs (0-0) /100 WBC Macrocytosis Marked A APTT 41.8 H (22.0-30.0) sec ABG pH (7.35-7.45) ABG pCO2 (35-45) mmHg ABG pO2 (83-108) mmHg ABG HCO3 (21-25) mmol/L ABG Total CO2 (19-24) mmol/L ABG O2 Saturation (94-97) % Potassium (3.5-5.1) mmol/L Chloride (98-107) mmol/L Carbon Dioxide (22-30) mmol/L Creatinine (0.52-1.04) mg/dL Glucose (74-99) mg/dL POC Glucose (mg/dL) 407 H (70-110) mg/dL Plasma Lactic Acid Reginald (0.7-2.0) mmol/L Calcium (8.4-10.2) mg/dL Magnesium (1.6-2.3) mg/dL AST (14-36) U/L ALT (4-34) U/L Alkaline Phosphatase (38-126) U/L Troponin I (0.000-0.034) ng/mL Total Protein (6.3-8.2) g/dL Albumin (3.5-5.0) g/dL Urine Appearance (Clear) Urine Protein (Negative) Urine Glucose (UA) (Negative) Urine Blood (Negative) Urine WBC (0-5) /hpf Urine Bacteria (None) /hpf Urine Mucus (None) /hpf 02/26/24 02/26/24 02/27/24 Range/Units 23:28 23:28 00:59 WBC (3.8-10.6) k/uL Hct (34.0-46.0) % MCV (80.0-100.0) fL MCHC (31.0-37.0) g/dL Neutrophils # (Manual) (1.3-7.7) k/uL Lymphocytes # (Manual) (1.0-4.8) k/uL Myelocytes # (Manual) (0) k/uL Nucleated RBCs (0-0) /100 WBC Macrocytosis APTT (22.0-30.0) sec ABG pH (7.35-7.45) ABG pCO2 (35-45) mmHg ABG pO2 (83-108) mmHg ABG HCO3 (21-25) mmol/L ABG Total CO2 (19-24) mmol/L ABG O2 Saturation (94-97) % Potassium (3.5-5.1) mmol/L Chloride 109 H (98-107) mmol/L Carbon Dioxide 8 L* (22-30) mmol/L Creatinine 1.19 H (0.52-1.04) mg/dL Glucose 421 H (74-99) mg/dL POC Glucose (mg/dL) 383 H (70-110) mg/dL Plasma Lactic Acid Regniald (0.7-2.0) mmol/L Calcium (8.4-10.2) mg/dL Magnesium 5.0 H* (1.6-2.3) mg/dL AST 278 H (14-36) U/L ALT 224 H (4-34) U/L Alkaline Phosphatase (38-126) U/L Troponin I 0.039 H* (0.000-0.034) ng/mL Total Protein 6.2 L (6.3-8.2) g/dL Albumin (3.5-5.0) g/dL Urine Appearance (Clear) Urine Protein (Negative) Urine Glucose (UA) (Negative) Urine Blood (Negative) Urine WBC (0-5) /hpf Urine Bacteria (None) /hpf Urine Mucus (None) /hpf 02/27/24 02/27/24 02/27/24 Range/Units 01:14 01:59 01:59 WBC 21.4 H (3.8-10.6) k/uL Hct (34.0-46.0) % MCV 104.1 H D (80.0-100.0) fL MCHC 30.9 L (31.0-37.0) g/dL Neutrophils # (Manual) 10.20 H (1.3-7.7) k/uL Lymphocytes # (Manual) 10.27 H (1.0-4.8) k/uL Myelocytes # (Manual) 0.21 H (0) k/uL Nucleated RBCs 1 H (0-0) /100 WBC Macrocytosis APTT (22.0-30.0) sec ABG pH 6.91 L* (7.35-7.45) ABG pCO2 54 H (35-45) mmHg ABG pO2 134 H (83-108) mmHg ABG HCO3 11 L (21-25) mmol/L ABG Total CO2 13 L (19-24) mmol/L ABG O2 Saturation (94-97) % Potassium (3.5-5.1) mmol/L Chloride (98-107) mmol/L Carbon Dioxide (22-30) mmol/L Creatinine (0.52-1.04) mg/dL Glucose (74-99) mg/dL POC Glucose (mg/dL) (70-110) mg/dL Plasma Lactic Acid Reginald (0.7-2.0) mmol/L Calcium (8.4-10.2) mg/dL Magnesium 4.3 H (1.6-2.3) mg/dL AST (14-36) U/L ALT (4-34) U/L Alkaline Phosphatase (38-126) U/L Troponin I (0.000-0.034) ng/mL Total Protein (6.3-8.2) g/dL Albumin (3.5-5.0) g/dL Urine Appearance (Clear) Urine Protein (Negative) Urine Glucose (UA) (Negative) Urine Blood (Negative) Urine WBC (0-5) /hpf Urine Bacteria (None) /hpf Urine Mucus (None) /hpf 02/27/24 02/27/24 02/27/24 Range/Units 01:59 05:30 05:30 WBC (3.8-10.6) k/uL Hct (34.0-46.0) % MCV (80.0-100.0) fL MCHC (31.0-37.0) g/dL Neutrophils # (Manual) (1.3-7.7) k/uL Lymphocytes # (Manual) (1.0-4.8) k/uL Myelocytes # (Manual) (0) k/uL Nucleated RBCs (0-0) /100 WBC Macrocytosis APTT (22.0-30.0) sec ABG pH (7.35-7.45) ABG pCO2 (35-45) mmHg ABG pO2 (83-108) mmHg ABG HCO3 (21-25) mmol/L ABG Total CO2 (19-24) mmol/L ABG O2 Saturation (94-97) % Potassium 2.9 L (3.5-5.1) mmol/L Chloride (98-107) mmol/L Carbon Dioxide 12 L 14 L (22-30) mmol/L Creatinine 1.34 H 1.56 H (0.52-1.04) mg/dL Glucose 393 H 527 H* (74-99) mg/dL POC Glucose (mg/dL) (70-110) mg/dL Plasma Lactic Acid Reginald 10.4 H* (0.7-2.0) mmol/L Calcium 7.2 L 6.9 L (8.4-10.2) mg/dL Magnesium 3.6 H (1.6-2.3) mg/dL AST 719 H (14-36) U/L ALT 461 H (4-34) U/L Alkaline Phosphatase 187 H (38-126) U/L Troponin I (0.000-0.034) ng/mL Total Protein 5.7 L (6.3-8.2) g/dL Albumin 3.3 L (3.5-5.0) g/dL Urine Appearance (Clear) Urine Protein (Negative) Urine Glucose (UA) (Negative) Urine Blood (Negative) Urine WBC (0-5) /hpf Urine Bacteria (None) /hpf Urine Mucus (None) /hpf 02/27/24 02/27/24 Range/Units 06:00 06:13 WBC (3.8-10.6) k/uL Hct (34.0-46.0) % MCV (80.0-100.0) fL MCHC (31.0-37.0) g/dL Neutrophils # (Manual) (1.3-7.7) k/uL Lymphocytes # (Manual) (1.0-4.8) k/uL Myelocytes # (Manual) (0) k/uL Nucleated RBCs (0-0) /100 WBC Macrocytosis APTT (22.0-30.0) sec ABG pH 7.05 L* (7.35-7.45) ABG pCO2 57 H (35-45) mmHg ABG pO2 55 L* (83-108) mmHg ABG HCO3 16 L (21-25) mmol/L ABG Total CO2 18 L (19-24) mmol/L ABG O2 Saturation 77.3 L (94-97) % Potassium (3.5-5.1) mmol/L Chloride (98-107) mmol/L Carbon Dioxide (22-30) mmol/L Creatinine (0.52-1.04) mg/dL Glucose (74-99) mg/dL POC Glucose (mg/dL) (70-110) mg/dL Plasma Lactic Acid Reginald (0.7-2.0) mmol/L Calcium (8.4-10.2) mg/dL Magnesium (1.6-2.3) mg/dL AST (14-36) U/L ALT (4-34) U/L Alkaline Phosphatase (38-126) U/L Troponin I (0.000-0.034) ng/mL Total Protein (6.3-8.2) g/dL Albumin (3.5-5.0) g/dL Urine Appearance Cloudy H (Clear) Urine Protein 2+ H (Negative) Urine Glucose (UA) 3+ H (Negative) Urine Blood Moderate H (Negative) Urine WBC 7 H (0-5) /hpf Urine Bacteria Rare H (None) /hpf Urine Mucus Rare H (None) /hpf
[2024-02-27 08:34] LABS: Glucose,Whole Blood 551 mg/dL (70-110)
[2024-02-27] MEDS: INSULIN REGULAR 100 UNIT in SODIUM CHLORIDE 0.9% 100 ML IV SCH (08:35)
[2024-02-27 09:08] LABS: ABG Base Excess -15.7 mmol/L; ABG HCO3 17 mmol/L (21-25); ABG PCO2 70 mmHg (35-45); ABG TCO2 19 mmol/L (19-24); Allen Test Performed? Yes
[2024-02-27 09:11] LABS: ABG PH 6.99 (7.35-7.45)
[2024-02-27] MEDS: SODIUM BICARB 8.4% 50 ML SYR (1 MEQ/ML) IV ONE (09:11)
[2024-02-27 09:12] LABS: ABG PO2 46 mmHg (83-108)
--- NOTE | 2024-02-27 09:12 | XR ---
EXAMINATION TYPE: XR chest 1V portable DATE OF EXAM: 02/27/2024 5:23 AM COMPARISON: None CLINICAL INDICATION: Female, 43 years old with history of Tube placement; [facility] TECHNIQUE: XR chest 1V portable Frontal view of the chest. FINDINGS: Lungs/Pleura: There is no evidence of pleural effusion, focal consolidation, or pneumothorax. Pulmonary vascularity: Unremarkable. Heart/mediastinum: Cardiomediastinal silhouette is unremarkable. Musculoskeletal: No acute osseous pathology. Other findings: None Endotracheal tube 4.8 cm from the mireya. Nasogastric tube in appropriate position. IMPRESSION: 1. Right perihilar airspace opacities correlate for pneumonia. 2. Support tubes in satisfactory position. [facility], , 02/27/2024 9:10 AM
[2024-02-27] MEDS: POTASSIUM CHLORIDE 10 MEQ in WATER FOR INJECTION 1 100ML.BAG IVPB SCH (09:22)
[2024-02-27 09:25] LABS: Glucose,Whole Blood 590 mg/dL (70-110)
[2024-02-27 09:57] LABS: Amphetamine Screen,Urine Not Detected (NotDetected); Barbiturate Screen,Urine Not Detected (NotDetected); Benzodiazepines Screen,Urine Not Detected (NotDetected); Cocaine Screen,Urine Not Detected (NotDetected); Methadone Screen, Urine Not Detected (NotDetected); Opiate Screen,Urine Not Detected (NotDetected); Oxycodone Screen, Urine Not Detected (NotDetected); Phencyclidine Screen,Urine Not Detected (NotDetected); Tricyclic Antidepressant,Urine Not Detected (NotDetected); Urn Cannabinoid Scrn Not Detected (NotDetected)
[2024-02-27] MEDS: EPINEPHrine 16 MG in DEXTROSE 5% IN WATER 250 ML IV SCH (10:07)
[2024-02-27 10:23] LABS: Glucose,Whole Blood 539 mg/dL (70-110)
[2024-02-27 10:59] LABS: Glucose,Whole Blood 529 mg/dL (70-110)
--- NOTE | 2024-02-27 11:28 | P.CNPUL ---
History of Present Illness Consult date: 02/27/24 Requesting physician: Anahi Corrigan Reason for consult: other (Cardiac arrest) Chief complaint: Cardiac arrest History of present illness: This is a 43-year-old female, no significant past medical history except for history of chronic abdominal pain, obesity, family history of premature coronary artery disease/father, patient was brought into the hospital last night with out of the hospital cardiac arrest. The last couple of days, patient had some complaints of abdominal pain her daughter was in the house with her yesterday, and she heard a thump patient was found in the kitchen lying on the floor and vomiting. EMS was called in. And CPR was started upon arrival of EMS was have had a downtime of about 35 to 40 minutes. EMS was able to get a pulse after 1 round of defibrillation. Patient had ACLS and mechanical chest compression in route to the hospital patient had had an episode of torsade received magnesium and defibrillation patient was seen by cardiology on consultation shortly after she arrived to the ER, CT of the head showed significant brain injury patient underwent cardiac catheterization, and she was found to have patent coronaries, no intervention was felt to be necessary. Hence shortly after patient was transferred to the ICU. CT angiogram of the chest showed no evidence of pulmonary embolism, but it was suggestive of possible pulmonary hypertension and aspiration pneumonia. Patient is now in the ICU on mechanical ventilation, she is on assist-control rate of 30 tidal volume 400 FiO2 100% PEEP at 14 showed a pO2 of 46, pCO2 70 pH of 6.99 hence patient tidal volume was increased to 450 respiratory rate increased to 34 patient received sodium bicarb IV push and she was placed on a bicarb drip. Patient has been anuric and she seems to be developing worsening renal picture hence nephrology was consulted. And considering her CT of the brain findings, neurology was consulted. Patient also was noted to have significantly elevated liver enzymes consistent with shock liver. Patient is maximized on pressors for hemodynamic support, she is actually on norepinephrine at 0.5 mcg/kg/min epinephrine 0.5 mcg/kg/min vasopressin at 0.03 she is also on amiodarone at 0.5 mg/min bicarb running at 75 cc/h main IV fluid 0.9 normal saline at 100 cc/h. Patient was also placed on insulin drip for elevated blood sugar in the 500 range. Chest x-ray this morn ing showed tubes in proper positions, she does have right perihilar airspace opacity consistent with pneumonia/most likely aspiration pneumonia. Patient has been initiated on Unasyn drug screen is negative however serum alcohol on presentation was 35. In summary we are dealing with the patient who presented with cardiac arrest, torsade on arrival to the hospital, downtime of 35 to 40 minutes, CT angiogram negative for pulmonary embolism chest x-ray positive for aspiration pneumonia CT of the brain showing severe anoxic brain injury, renal functioning is poor and the patient is anuric patient must have developed acute tubular necrosis and acute kidney injury patient was also noted to have severe metabolic and respiratory acidosis she had poor tolerance to high PEEP she is on maximal pressors, this is felt to be mostly cardiogenic in nature/cardiogenic hypotension, family at bedside and updated on her poor condition Review of Systems ROS unobtainable: due to mental status (According to daughter patient had mostly issues with abdominal pain/intermittent. And has been under a lot of stress recently) Past Medical History Past Medical History: Unable to Obtain History of Any Multi-Drug Resistant Organisms: None Reported Past Surgical History: Unable to Obtain Additional Past Surgical History / Comment(s): ovarian cycst removal Past Anesthesia/Blood Transfusion Reactions: Unable to Obtain Past Psychological History: Unable to Obtain Smoking Status: Current every day smoker Medications and Allergies Home Medications Medication Instructions Recorded Confirmed Type Albuterol Inhaler [Ventolin Hfa 2 puff INHALATION RT-Q4H PRN 02/27/24 02/27/24 History Inhaler] Cetirizine HCl [Zyrtec] 10 mg PO DAILY 02/27/24 02/27/24 History Omeprazole [PriLOSEC] 20 mg PO DAILY 02/27/24 02/27/24 History levonorgestreL [Mirena] 1 implant INTRAUTERI DIRECTED 02/27/24 02/27/24 History Allergies Allergy/AdvReac Type Severity Reaction Status Date / Time Unable to Assess Allergy Verified 02/26/24 23:38 Physical Exam Vitals: Vital Signs Temp Pulse Resp BP Pulse Ox FiO2 02/27/24 11:00 101 H 34 H 70 L 02/27/24 10:45 101 H 34 H 81/48 69 L 02/27/24 10:30 101 H 34 H 70 L 02/27/24 10:15 101 H 34 H 93/66 66 L 02/27/24 10:00 103 H 34 H 74/50 60 L 02/27/24 09:45 102 H 34 H 60 L 02/27/24 09:30 103 H 34 H 77/60 62 L 02/27/24 09:15 103 H 34 H 70 L 02/27/24 09:00 100 30 H 84/67 75 L 02/27/24 08:45 101 H 30 H 81 L 02/27/24 08:30 101 H 30 H 81/57 80 L 02/27/24 08:20 100 02/27/24 08:15 101 H 30 H 85 L 02/27/24 08:00 101 H 30 H 93/71 85 L 100 02/27/24 07:45 101 H 30 H 85 L 02/27/24 07:30 102 H 30 H 83 L 02/27/24 07:15 102 H 30 H 99/70 85 L 02/27/24 07:00 104 H 30 H 77/26 83 L 02/27/24 06:45 104 H 30 H 77/26 78 L 02/27/24 06:30 104 H 30 H 89/63 83 L 02/27/24 06:15 103 H 30 H 89/63 83 L 02/27/24 06:00 103 H 24 97/57 84 L 02/27/24 05:45 103 H 24 97/57 85 L 02/27/24 05:30 103 H 24 94/58 85 L 02/27/24 05:15 103 H 24 94/58 87 L 02/27/24 05:00 92.3 F L 102 H 24 88 L 100 02/27/24 04:45 101 H 24 89 L 100 02/27/24 04:30 101 H 24 93/62 91 L 100 02/27/24 04:15 101 H 24 93/62 92 L 100 02/27/24 04:02 100 02/27/24 04:00 101 H 24 99/55 92 L 100 02/27/24 03:45 99 24 99/55 91 L 100 02/27/24 03:37 100 02/27/24 03:30 98 24 98/54 86 L 100 02/27/24 03:15 98 24 98/54 88 L 100 02/27/24 03:00 94 24 99/55 89 L 60 02/27/24 02:45 91.4 F L 92 24 99/55 90 L 60 02/27/24 02:30 90 24 99/55 92 L 02/27/24 02:15 89 24 93 L 02/27/24 02:00 87 24 92 L 02/27/24 01:45 82 16 02/27/24 01:30 76 14 60 02/27/24 01:23 100 02/27/24 01:15 73 18 02/27/24 01:00 70 5 L 02/27/24 00:58 10 L 02/27/24 00:32 100 02/26/24 23:30 100 Intake and Output 02/26/24 02/27/24 02/27/24 22:59 06:59 14:59 Intake Total 2304.464 4265.356 Output Total 40 0 Balance 4769.401 6965.356 Intake: IV 476 855 0.9 @ KVO 40 Ampicillin-Sulbactam 3 gm 100 In Sodium Chloride 0.9% 100 ml @ 200 mls/hr IVPB Q8HR [facility] Rx#:[id number] Dextrose 5% in Water 1, 300 000 ml @ 75 mls/hr IV . [id number] [facility] with Sodium Bicarb (1 Meq/ml) 150 ml Rx#:[id number] Potassium Chloride 10 meq 200 In Water For Injection 1 100ml.bag @ 100 mls/hr IVPB Q1HR [facility] Rx#: [id number] Sodium Chloride 0.9% 1, 200 000 ml @ 100 mls/hr IV . Q10H [facility]A Rx#:[id number] pressure bag 12 15 Intake, IV Titration 920.197 401.356 Amount Ampicillin-Sulbactam 3 gm 100 In Sodium Chloride 0.9% 100 ml @ 200 mls/hr IVPB Q8HR [facility] Rx#:[id number] Dextrose 5% in Water 1, 75 000 ml @ 75 mls/hr IV . [id number] [facility] with Sodium Bicarb (1 Meq/ml) 150 ml Rx#:[id number] EPINEPHrine 4 mg In 295.469 204.531 Dextrose 5% in Water 250 ml @ 0.03 MCG/KG/MIN 10. 913 mls/hr IV .[id number] [facility] Rx#:[id number] Insulin Regular 100 unit 21.825 In Sodium Chloride 0.9% 100 ml @ Titrate IV .Q0M [facility] Rx#:[id number] Norepinephrine 32 mg In 13.641 Sodium Chloride 0.9% 218 ml @ 0.03 MCG/KG/MIN 1. 364 mls/hr IV .Q24H [facility] Rx#:[id number] Norepinephrine 4 mg In 11.087 Sodium Chloride 0.9% 250 ml @ 0.03 MCG/KG/MIN 11. 087 mls/hr IV .[id number] [facility] Rx#:[id number] Sodium Chloride 0.9% 1, 500 100 000 ml @ 100 mls/hr IV . Q10H [facility]A Rx#:[id number] Output: Urine 40 0 Other: Voiding Method Indwelling Catheter Indwelling Catheter Weight 98.3 kg ABP, PAP, CO, CI - Last 8 Hours Arterial Blood Pressure 87/66 Arterial Blood Pressure 86/49 Arterial Blood Pressure 90/51 Arterial Blood Pressure 88/48 Arterial Blood Pressure 93/70 Arterial Blood Pressure 80/41 Arterial Blood Pressure 82/43 Arterial Blood Pressure 82/42 Arterial Blood Pressure 85/48 Arterial Blood Pressure 93/53 Arterial Blood Pressure 100/59 Arterial Blood Pressure 103/60 Arterial Blood Pressure 108/62 Arterial Blood Pressure 107/61 Arterial Blood Pressure 111/63 Arterial Blood Pressure 111/62 Arterial Blood Pressure 115/62 Arterial Blood Pressure 108/58 Arterial Blood Pressure 88/44 Arterial Blood Pressure 97/52 Arterial Blood Pressure 97/52 Arterial Blood Pressure 99/49 Arterial Blood Pressure 98/52 Arterial Blood Pressure 96/52 Arterial Blood Pressure 108/58 Arterial Blood Pressure 114/60 Arterial Blood Pressure 121/64 Arterial Blood Pressure 89/49 Arterial Blood Pressure 94/53 Arterial Blood Pressure 93/53 Arterial Blood Pressure 94/53 General: Revealed 43-year-old female obese, unresponsive to any stimuli, intubated and mechanically ventilated. Skin: Skin is warm and dry and no rashes or lesions are noted. Eye: Pupils are both dilated and nonreactive to light. No icterus. There is however some left subconjunctival hemorrhage noted Ears, nose, mouth and throat: There are moist mucous membranes and no oral lesions. Endotracheal tube and orogastric tube are intact Neck: The neck is supple, there is no tenderness or JVD. Cardiovascular: Distant S1-S2, no S3 gallop, no murmur. Respiratory: Diminished breath sound bilaterally no rhonchi no wheezes Gastrointestinal: Obese, soft, non-distended, non-tender abdomen without masses or organomegaly noted. Musculoskeletal: No deformities, unable to assess range of motion as the patient is in a comatose state. Neurological: Pupils are dilated, not reactive to light, patient is not responsive to any stimuli. Full neurological evaluation is pending by neurology Psychiatric: Could not assess Results - Laboratory Findings CBC and BMP: 02/27/24 01:59 02/27/24 05:30 ABG ABG pH 6.99 (7.35-7.45) L* 02/27/24 09:05 ABG pCO2 70 mmHg (35-45) H 02/27/24 09:05 ABG pO2 46 mmHg (83-108) L* 02/27/24 09:05 ABG O2 Saturation 66.0 % (94-97) L 02/27/24 09:05 PT/INR, D-dimer PT 10.5 sec (10.0-12.5) 02/26/24 23:28 INR 1.0 (<1.2) 02/26/24 23:28 Abnormal lab findings: Abnormal Labs 02/26/24 02/26/24 02/26/24 23:28 23:28 23:28 WBC Hct 48.6 H MCV 110.2 H MCHC 29.5 L Neutrophils # (Manual) Lymphocytes # (Manual) Myelocytes # (Manual) Nucleated RBCs Macrocytosis Marked A APTT 41.8 H ABG pH ABG pCO2 ABG pO2 ABG HCO3 ABG Total CO2 ABG O2 Saturation Potassium Chloride Carbon Dioxide Creatinine Glucose POC Glucose (mg/dL) 407 H Plasma Lactic Acid Reginald Calcium Magnesium AST ALT Alkaline Phosphatase Troponin I Total Protein Albumin Urine Appearance Urine Protein Urine Glucose (UA) Urine Blood Urine WBC Urine Bacteria Urine Mucus 02/26/24 02/26/24 02/27/24 23:28 23:28 00:59 WBC Hct MCV MCHC Neutrophils # (Manual) Lymphocytes # (Manual) Myelocytes # (Manual) Nucleated RBCs Macrocytosis APTT ABG pH ABG pCO2 ABG pO2 ABG HCO3 ABG Total CO2 ABG O2 Saturation Potassium Chloride 109 H Carbon Dioxide 8 L* Creatinine 1.19 H Glucose 421 H POC Glucose (mg/dL) 383 H Plasma Lactic Acid Reginald Calcium Magnesium 5.0 H* AST 278 H ALT 224 H Alkaline Phosphatase Troponin I 0.039 H* Total Protein 6.2 L Albumin Urine Appearance Urine Protein Urine Glucose (UA) Urine Blood Urine WBC Urine Bacteria Urine Mucus 02/27/24 02/27/24 02/27/24 01:14 01:59 01:59 WBC 21.4 H Hct MCV 104.1 H D MCHC 30.9 L Neutrophils # (Manual) 10.20 H Lymphocytes # (Manual) 10.27 H Myelocytes # (Manual) 0.21 H Nucleated RBCs 1 H Macrocytosis APTT ABG pH 6.91 L* ABG pCO2 54 H ABG pO2 134 H ABG HCO3 11 L ABG Total CO2 13 L ABG O2 Saturation Potassium Chloride Carbon Dioxide Creatinine Glucose POC Glucose (mg/dL) Plasma Lactic Acid Reginald Calcium Magnesium 4.3 H AST ALT Alkaline Phosphatase Troponin I Total Protein Albumin Urine Appearance Urine Protein Urine Glucose (UA) Urine Blood Urine WBC Urine Bacteria Urine Mucus 02/27/24 02/27/24 02/27/24 01:59 05:30 05:30 WBC Hct MCV MCHC Neutrophils # (Manual) Lymphocytes # (Manual) Myelocytes # (Manual) Nucleated RBCs Macrocytosis APTT ABG pH ABG pCO2 ABG pO2 ABG HCO3 ABG Total CO2 ABG O2 Saturation Potassium 2.9 L Chloride Carbon Dioxide 12 L 14 L Creatinine 1.34 H 1.56 H Glucose 393 H 527 H* POC Glucose (mg/dL) Plasma Lactic Acid Reginald 10.4 H* Calcium 7.2 L 6.9 L Magnesium 3.6 H AST 719 H ALT 461 H Alkaline Phosphatase 187 H Troponin I Total Protein 5.7 L Albumin 3.3 L Urine Appearance Urine Protein Urine Glucose (UA) Urine Blood Urine WBC Urine Bacteria Urine Mucus 02/27/24 02/27/24 02/27/24 06:00 06:13 08:33 WBC Hct MCV MCHC Neutrophils # (Manual) Lymphocytes # (Manual) Myelocytes # (Manual) Nucleated RBCs Macrocytosis APTT ABG pH 7.05 L* ABG pCO2 57 H ABG pO2 55 L* ABG HCO3 16 L ABG Total CO2 18 L ABG O2 Saturation 77.3 L Potassium Chloride Carbon Dioxide Creatinine Glucose POC Glucose (mg/dL) 551 H* Plasma Lactic Acid Reginald Calcium Magnesium AST ALT Alkaline Phosphatase Troponin I Total Protein Albumin Urine Appearance Cloudy H Urine Protein 2+ H Urine Glucose (UA) 3+ H Urine Blood Moderate H Urine WBC 7 H Urine Bacteria Rare H Urine Mucus Rare H 02/27/24 02/27/24 02/27/24 09:05 09:24 10:22 WBC Hct MCV MCHC Neutrophils # (Manual) Lymphocytes # (Manual) Myelocytes # (Manual) Nucleated RBCs Macrocytosis APTT ABG pH 6.99 L* ABG pCO2 70 H ABG pO2 46 L* ABG HCO3 17 L ABG Total CO2 ABG O2 Saturation 66.0 L Potassium Chloride Carbon Dioxide Creatinine Glucose POC Glucose (mg/dL) 590 H* 539 H* Plasma Lactic Acid Reginald Calcium Magnesium AST ALT Alkaline Phosphatase Troponin I Total Protein Albumin Urine Appearance Urine Protein Urine Glucose (UA) Urine Blood Urine WBC Urine Bacteria Urine Mucus 02/27/24 10:57 WBC Hct MCV MCHC Neutrophils # (Manual) Lymphocytes # (Manual) Myelocytes # (Manual) Nucleated RBCs Macrocytosis APTT ABG pH ABG pCO2 ABG pO2 ABG HCO3 ABG Total CO2 ABG O2 Saturation Potassium Chloride Carbon Dioxide Creatinine Glucose POC Glucose (mg/dL) 529 H* Plasma Lactic Acid Reginald Calcium Magnesium AST ALT Alkaline Phosphatase Troponin I Total Protein Albumin Urine Appearance Urine Protein Urine Glucose (UA) Urine Blood Urine WBC Urine Bacteria Urine Mucus - Diagnostic Findings Chest x-ray: image reviewed (As noted in HPI) Additional studies: CT of the brain as noted in HPI consistent with severe anoxic brain injury CT angiogram of the chest as noted in HPI Assessment and Plan Assessment: Impression: Cardiac arrest, status post CPR, prolonged downtime 35 to 40 minutes. [place]ors[place] po[place] rhythm on route to the hospital requiring defibrillation and magnesium. Status post cardiac catheterization, but no intervention was felt to be necessary. Cardiogenic hypotension, sepsis is felt to be less likely considering the clinical history nonetheless patient is on Unasyn for presumptive aspiration. Echocardiogram is pending. Severe anoxic brain injury is strongly suspected mostly based on clinical picture and based on CT of the brain findings. Neurology consult is pending. Acute kidney injury with oliguria/anuria, suspect acute tubular necrosis secondary to hypotension. Nephrology consult is pending Severe metabolic and respiratory acidosis Acute hypoxic and hypercapnic respiratory failure secondary to cardiac arrest and aspiration pneumonia Abnormal liver enzymes, shock liver secondary to hypotension Possible aspiration pneumonia Acute alcohol intoxication on presentation Recommendation: Continue ventilatory support patient does not seem to be doing well with mechanical ventilation, remains relatively hypoxic and hypercapnic and spite of high FiO2, and relatively high PEEP, patient could not tolerate higher PEEP as she became hypotensive and desaturated with increase in PEEP. Continue hemodynamic support patient is now on multiple pressors including norepinephrine, epinephrine, vasopressin, and she remains relatively hypotensive in spite of maximal pressor support, and in spite of fluid boluses. Continue GI and DVT prophylaxis Consult neurology for anoxic brain injury Consult nephrology for acute kidney injury and oliguria/anuria, order renal ultrasound in the meantime. Rule out obstructive uropathy Continue antibiotics/Unasyn for presumptive aspiration pneumonia Patient is critically ill, especially with her acute presentation of brain injury secondary to cardiac arrest with prolonged downtime Family updated on her condition, remains full code for the time being Echocardiogram is pending Reviewed the results and the findings of her cardiac catheterization Reviewed her labs and workup since admission Again prognosis extremely poor. Family is very well aware of the prognosis We will continue to follow. Time with Patient: Greater than 30
[2024-02-27] MEDS: POTASSIUM CHLORIDE 20 MEQ in WATER FOR INJECTION 1 100ML.BAG IVPB SCH (11:41)
--- NOTE | 2024-02-27 11:54 | P.NPCON ---
History of Present Illness - Reason for Consult acute renal failure - History of Present Illness patient is a 43-year-old female with no significant past medical history except for an ovarian cyst. Patient collapsed at home after having had a few drinks with her friends a few hours earlier. Daughter was present and home and initiated CPR while EMS arrived. Patient had chest compressions and defibrilla tion with return of circulation. Down time about 35-40 minutes. Torsades [place] Pointes was noted and patient was given magnesium and taken for urgent cardiac catheterization as EKG showed diffuse ST depressions and elevations. No evidence of obstructive coronary artery disease on cardiac cath. Patient has been significantly hypotensive requiring high doses off levo fed, epinephrine and vasopressin. She remains on the vent with FiO2 at 100% and significant hypoxia. Patient has been anuric. She is maintained on bicarb drip for severe acidosis. CT of the head shows evidence of severe diffuse hypoxic ischemic injury. Family is present at bedside and they are aware of the grave prognosis. Serum creatinine 1.5 and serum potassium 2.9 with CO2 of 14. ABG shows pH of 6.9. Blood sugar is elevated at 551 and lactic acid was elevated at 10.4. Drug screen was negative. Past Medical History Past Medical History: Unable to Obtain History of Any Multi-Drug Resistant Organisms: None Reported Past Surgical History: Unable to Obtain Additional Past Surgical History / Comment(s): ovarian cycst removal Past Anesthesia/Blood Transfusion Reactions: Unable to Obtain Past Psychological History: Unable to Obtain Smoking Status: Current every day smoker Medications and Allergies Home Medications Medication Instructions Recorded Confirmed Type Albuterol Inhaler [Ventolin Hfa 2 puff INHALATION RT-Q4H PRN 02/27/24 02/27/24 History Inhaler] Cetirizine HCl [Zyrtec] 10 mg PO DAILY 02/27/24 02/27/24 History Omeprazole [PriLOSEC] 20 mg PO DAILY 02/27/24 02/27/24 History levonorgestreL [Mirena] 1 implant INTRAUTERI DIRECTED 02/27/24 02/27/24 H istory Allergies Allergy/AdvReac Type Severity Reaction Status Date / Time Unable to Assess Allergy Verified 02/26/24 23:38 Physical Exam Vitals: Vital Signs Temp Pulse Resp BP Pulse Ox FiO2 02/27/24 11:18 100 02/27/24 11:00 101 H 34 H 70 L 02/27/24 10:45 101 H 34 H 81/48 69 L 02/27/24 10:30 101 H 34 H 70 L 02/27/24 10:15 101 H 34 H 93/66 66 L 02/27/24 10:00 103 H 34 H 74/50 60 L 02/27/24 09:45 102 H 34 H 60 L 02/27/24 09:30 103 H 34 H 77/60 62 L 02/27/24 09:15 103 H 34 H 70 L 02/27/24 09:00 100 30 H 84/67 75 L 02/27/24 08:45 101 H 30 H 81 L 02/27/24 08:30 101 H 30 H 81/57 80 L 02/27/24 08:20 100 02/27/24 08:15 101 H 30 H 85 L 02/27/24 08:00 93.6 F L 101 H 30 H 93/71 85 L 100 02/27/24 07:45 101 H 30 H 85 L 02/27/24 07:30 102 H 30 H 83 L 02/27/24 07:15 102 H 30 H 99/70 85 L 02/27/24 07:00 104 H 30 H 77/26 83 L 02/27/24 06:45 104 H 30 H 77/26 78 L 02/27/24 06:30 104 H 30 H 89/63 83 L 02/27/24 06:15 103 H 30 H 89/63 83 L 02/27/24 06:00 103 H 24 97/57 84 L 02/27/24 05:45 103 H 24 97/57 85 L 02/27/24 05:30 103 H 24 94/58 85 L 02/27/24 05:15 103 H 24 94/58 87 L 02/27/24 05:00 92.3 F L 102 H 24 88 L 100 02/27/24 04:45 101 H 24 89 L 100 02/27/24 04:30 101 H 24 93/62 91 L 100 02/27/24 04:15 101 H 24 93/62 92 L 100 02/27/24 04:02 100 02/27/24 04:00 101 H 24 99/55 92 L 100 02/27/24 03:45 99 24 99/55 91 L 100 11/14/24 03:37 100 02/27/24 03:30 98 24 98/54 86 L 100 02/27/24 03:15 98 24 98/54 88 L 100 02/27/24 03:00 94 24 99/55 89 L 60 02/27/24 02:45 91.4 F L 92 24 99/55 90 L 60 02/27/24 02:30 90 24 99/55 92 L 02/27/24 02:15 89 24 93 L 02/27/24 02:00 87 24 92 L 02/27/24 01:45 82 16 02/27/24 01:30 76 14 60 02/27/24 01:23 100 02/27/24 01:15 73 18 02/27/24 01:00 70 5 L 02/27/24 00:58 10 L 02/27/24 00:32 100 02/26/24 23:30 100 Intake and Output 02/26/24 02/27/24 02/27/24 22:59 06:59 14:59 Intake Total 4032.995 2779.704 Output Total 40 0 Balance 2419.145 7633.704 Intake: IV 476 855 0.9 @ KVO 40 Ampicillin-Sulbactam 3 gm 100 In Sodium Chloride 0.9% 100 ml @ 200 mls/hr IVPB Q8HR [facility] Rx#:[id number] Dextrose 5% in Water 1, 300 000 ml @ 75 mls/hr IV . [id number] [facility] with Sodium Bicarb (1 Meq/ml) 150 ml Rx#:[id number] Potassium Chloride 10 meq 200 In Water For Injection 1 100ml.bag @ 100 mls/hr IVPB Q1HR [facility] Rx#: [id number] Sodium Chloride 0.9% 1, 200 000 ml @ 100 mls/hr IV . Q10H [facility]A Rx#:[id number] pressure bag 12 15 Intake, IV Titration 920.197 435.704 Amount Ampicillin-Sulbactam 3 gm 100 In Sodium Chloride 0.9% 100 ml @ 200 mls/hr IVPB Q8HR [facility] Rx#:[id number] Dextrose 5% in Water 1, 75 000 ml @ 75 mls/hr IV . [id number] [facility] with Sodium Bicarb (1 Meq/ml) 150 ml Rx#:[id number] EPINEPHrine 4 mg In 295.469 204.531 Dextrose 5% in Water 250 ml @ 0.03 MCG/KG/MIN 10. 913 mls/hr IV .[id number] [facility] Rx#:[id number] Insulin Regular 100 unit 21.825 In Sodium Chloride 0.9% 100 ml @ Titrate IV .Q0M [facility] Rx#:[id number] Norepinephrine 32 mg In 13.641 Sodium Chloride 0.9% 218 ml @ 0.03 MCG/KG/MIN 1. 364 mls/hr IV .Q24H [facility] Rx#:[id number] Norepinephrine 4 mg In 11.087 Sodium Chloride 0.9% 250 ml @ 0.03 MCG/KG/MIN 11. 087 mls/hr IV .[id number] [facility] Rx#:[id number] Sodium Chloride 0.9% 1, 500 100 000 ml @ 100 mls/hr IV . Q10H [facility] Rx#:[id number] Vasopressin 20 unit In 34.348 Sodium Chloride 0.9% 50 ml @ 0.03 UNITS/MIN 4.59 mls/hr IV .[id number] [facility] Rx# :[id number] Output: Urine 40 0 Other: Voiding Method Indwelling Catheter Indwelling Catheter Weight 98.3 kg ABP, PAP, CO, CI - Last 8 Hours Arterial Blood Pressure 87/66 Arterial Blood Pressure 86/49 Arterial Blood Pressure 90/51 Arterial Blood Pressure 88/48 Arterial Blood Pressure 93/70 Arterial Blood Pressure 80/41 Arterial Blood Pressure 82/43 Arterial Blood Pressure 82/42 Arterial Blood Pressure 85/48 Arterial Blood Pressure 93/53 Arterial Blood Pressure 100/59 Arterial Blood Pressure 103/60 Arterial Blood Pressure 108/62 Arterial Blood Pressure 107/61 Arterial Blood Pressure 111/63 Arterial Blood Pressure 111/62 Arterial Blood Pressure 115/62 Arterial Blood Pressure 108/58 Arterial Blood Pressure 88/44 Arterial Blood Pressure 97/52 Arterial Blood Pressure 97/52 Arterial Blood Pressure 99/49 Arterial Blood Pressure 98/52 Arterial Blood Pressure 96/52 Arterial Blood Pressure 108/58 Arterial Blood Pressure 114/60 Arterial Blood Pressure 121/64 Arterial Blood Pressure 89/49 Arterial Blood Pressure 94/53 patient is currently sedated and on the vent. She is intubated MUD JACK NOZZLEMAN exam cannot be performed Results - Lab Results Most recent lab results ABG pH 6.99 (7.35-7.45) L* 02/27/24 09:05 ABG pCO2 70 mmHg (35-45) H 02/27/24 09:05 ABG pO2 46 mmHg (83-108) L* 02/27/24 09:05 ABG HCO3 17 mmol/L (21-25) L 02/27/24 09:05 ABG O2 Saturation 66.0 % (94-97) L 02/27/24 09:05 Calcium 6.9 mg/dL (8.4-10.2) L 02/27/24 05:30 Magnesium 3.6 mg/dL (1.6-2.3) H 02/27/24 05:30 02/27/24 01:59 02/27/24 05:30 Assessment and Plan Assessment: 1. Acute kidney injury, ischemic ATN postcardiac arrest 2. Status post cardiac arrest with prolonged downtime, torsades De pointes. S tatus post cardiac cath with no evidence of obstructive coronary artery disease. 3. Severe metabolic acidosis secondary to lactic acidosis, cardiac arrest 4. shock liver Plan: At this time patient is not a candidate for renal replacement therapy given the severe hypotension. Continue bicarb drip. Overall prognosis is grave. Family is aware. Discussed with nursing staff as well.
[2024-02-27 12:05] VITALS: TEMP 94.3
[2024-02-27 12:08] LABS: Glucose,Whole Blood 504 mg/dL (70-110)
[2024-02-27] MEDS: DOBUTamine DRIP 500 MG in DEXTROSE/WATER 1 250ML.BAG IV SCH (12:35)
--- NOTE | 2024-02-27 12:47 | US ---
EXAMINATION TYPE: US kidneys/renal and bladder DATE OF EXAM: 02/27/2024 COMPARISON: NONE CLINICAL INDICATION: Female, 43 years old with history of atn anuria; ICU Patient limited history fro m daughter - no relevant history TECHNIQUE: Grayscale imaging of the bilateral kidneys and urinary bladder: FINDINGS: EXAM MEASUREMENTS: Right Kidney: 9.8 x 53 x 4.5 cm Left Kidney: 10.7 x 6.2 x 4.7 cm Post Void Residual Volume: NA mL Incidental - Echogenic area superior lateral to liver = 10.6 x 4.0 x 11.0 cm Right Kidney: ? Cystic structure seen medial to kidney - unable to determine relation to kidney or no t Left Kidney: ? Cystic structure seen inferior medial to kidney - unable to determine relation to kidn ey or not Bladder: Unable to identify - fluid filled loops of bowel Bilateral Jets seen: Not able to assess Normal Post Void Residual: NA IMPRESSION: 1. No evidence for obstructive uropathy. 2. Prominent renal pelves bilaterally suggested persistent peripelvic cyst.. Complete evaluation wit h CT would provide clarity with IV contrast. [facility], , 02/27/2024 12:45 PM
[2024-02-27] MEDS ORDERED: MORPHINE SULFATE 4 MG/ML SYRINGE IVP ONE (13:37)
[2024-02-27] MEDS ORDERED: MORPHINE SULFATE 4 MG/ML SYRINGE IV PRN (13:37)
[2024-02-27] MEDS ORDERED: ATROPINE OPHTH SOLN 1% 5ML BTL SUBLINGUAL PRN (13:37)
[2024-02-27] MEDS ORDERED: MORPHINE SULFATE 2 MG/ML SYRINGE IV PRN (13:37)
[2024-02-27] MEDS ORDERED: MORPHINE SULFATE (100 MG/2 ML) 100 MG in SODIUM CHLORIDE 0.9% 100 ML IV SCH (13:45)
[2024-02-27] MEDS: HYDROmorphone 1 MG/ML 1 ML SYRINGE IVP PRN (13:45)
[2024-02-27] MEDS: SODIUM CHLORIDE 3%(HYPERTONIC) 500 ML IV ONE (13:59)
[2024-02-27] MEDS ORDERED: SCOPOLAMINE 1 MG/72 HR PATCH TRANSDERM SCH (14:00)
--- NOTE | 2024-02-27 14:20 | P.HPIM ---
History of Present Illness H&P Date: 02/27/24 History of present illness; patient is a 43-year-old lady with past medical history significant for ovarian cyst presented the ER for cardiac arrest. History is limited and is obtained from EMR, according to it patient was found laying on the floor by her daughter. Patient daughter noted that the patient was under stress for the last few days. Patient had been complaining of abdominal pain and was diagnosed with ovarian cyst which was being managed conservatively. Patient apparently went out to drink in the evening and when she came back her daughter who was there heard a loud thump. When she went to check on her she was found laying on the floor. EMS was called, CPR was initiated by daughter and carried on by the EMS. ROSC was obtained after 1 round of defibrillation, ACLS and compressions. On route to the ER, patient had episode of torsades for which she obtained magnesium and defibrillation. Patient was intubated on the field. Initial lab work done in the ER showed WBC 6.8, hemoglobin 14.3, platelet count 189, sodium 142, potassium 4, chloride 109, carbon dioxide 8, BUN 9, creatinine 0.19, glucose 421 magnesium 5, AST 278, ALT 224 Patient admitted to internal medicine service REVIEW OF SYSTEMS: Cannot be obtained as patient is currently intubated PHYSICAL EXAMINATION: GENERAL: The patient is intubated HEENT: Pupils are round and equally reacting to light. EOMI. No scleral icterus. No conjunctival pallor. Normocephalic, atraumatic. No pharyngeal erythema. No thyromegaly. CARDIOVASCULAR: S1 and S2 present. No murmurs, rubs, or gallops. PULMONARY: Chest is clear to auscultation, no wheezing or crackles. ABDOMEN: Soft, nontender, nondistended, normoactive bowel sounds. No palpable organomegaly. MUSCULOSKELETAL: No joint swelling or deformity. EXTREMITIES: No cyanosis, clubbing, or pedal edema. NEUROLOGICAL: Intubated SKIN: No rashes. Assessment and plan Cardiac arrest V-fib arrest Episode of torsades Vent dependent respiratory failure Acute kidney injury Acute transaminitis Anion gap metabolic acidosis DKA Monitor vital signs Monitor CBC Monitor CMP Continue telemetry monitoring Ordered vent management Status post cardiac cath showing Angiographically patent coronary arteries,Elevated LVEDP Ordered amiodarone drip Ordered IV Unasyn Ordered pressors Consult neurology Consult nephrology Consult critical care Labs and medication were reviewed.. Continue same treatment. Continue with symptomatic treatment. Resume home medication. Monitor labs and vitals. DVT and GI prophylaxis. Further recommendations as per clinical course of the patient Dictation was produced using [employer] dictation software. please excuse any grammatical, word or spelling errors. Past Medical History Past Medical History: Unable to Obtain History of Any Multi-Drug Resistant Organisms: None Reported Past Surgical History: Unable to Obtain Additional Past Surgical History / Comment(s): ovarian cycst removal Past Anesthesia/Blood Transfusion Reactions: Unable to Obtain Past Psychological History: Unable to Obtain Smoking Status: Current every day smoker Medications and Allergies Allergies Allergy/AdvReac Type Severity Reaction Status Date / Time Unable to Assess Allergy Verified 02/26/24 23:38 Physical Exam Vitals: Vital Signs Temp Pulse Resp BP Pulse Ox FiO2 02/27/24 10:00 103 H 34 H 74/50 60 L 02/27/24 09:45 102 H 34 H 60 L 02/27/24 09:30 103 H 34 H 77/60 62 L 02/27/24 09:15 103 H 34 H 70 L 02/27/24 09:00 100 30 H 84/67 75 L 02/27/24 08:45 101 H 30 H 81 L 02/27/24 08:30 101 H 30 H 81/57 80 L 02/27/24 08:20 100 02/27/24 08:15 101 H 30 H 85 L 02/27/24 08:00 101 H 30 H 93/71 85 L 100 02/27/24 07:45 101 H 30 H 85 L 02/27/24 07:30 102 H 30 H 83 L 02/27/24 07:15 102 H 30 H 99/70 85 L 02/27/24 07:00 104 H 30 H 77/26 83 L 02/27/24 06:45 104 H 30 H 77/26 78 L 02/27/24 06:30 104 H 30 H 89/63 83 L 02/27/24 06:15 103 H 30 H 89/63 83 L 02/27/24 06:00 103 H 24 97/57 84 L 02/27/24 05:45 103 H 24 97/57 85 L 02/27/24 05:30 103 H 24 94/58 85 L 02/27/24 05:15 103 H 24 94/58 87 L 02/27/24 05:00 92.3 F L 102 H 24 88 L 100 02/27/24 04:45 101 H 24 89 L 100 02/27/24 04:30 101 H 24 93/62 91 L 100 02/27/24 04:15 101 H 24 93/62 92 L 100 02/27/24 04:02 100 02/27/24 04:00 101 H 24 99/55 92 L 100 02/27/24 03:45 99 24 99/55 91 L 100 02/27/24 03:37 100 02/27/24 03:30 98 24 98/54 86 L 100 02/27/24 03:15 98 24 98/54 88 L 100 02/27/24 03:00 94 24 99/55 89 L 60 02/27/24 02:45 91.4 F L 92 24 99/55 90 L 60 02/27/24 02:30 90 24 99/55 92 L 02/27/24 02:15 89 24 93 L 02/27/24 02:00 87 24 92 L 02/27/24 01:45 82 16 02/27/24 01:30 76 14 60 02/27/24 01:23 100 02/27/24 01:15 73 18 02/27/24 01:00 70 5 L 02/27/24 00:58 10 L 02/27/24 00:32 100 02/26/24 23:30 100 Intake and Output 02/26/24 02/27/24 02/27/24 22:59 06:59 14:59 Intake Total 0914.793 5909.389 Output Total 40 0 Balance 4587.155 4024.389 Intake: IV 476 667 0.9 @ KVO 30 Ampicillin-Sulbactam 3 gm 100 In Sodium Chloride 0.9% 100 ml @ 200 mls/hr IVPB Q8HR [facility] Rx#:[id number] Dextrose 5% in Water 1, 225 000 ml @ 75 mls/hr IV . [id number] [facility] with Sodium Bicarb (1 Meq/ml) 150 ml Rx#:[id number] Potassium Chloride 10 meq 100 In Water For Injection 1 100ml.bag @ 100 mls/hr IVPB Q1HR [facility] Rx#: [id number] Sodium Chloride 0.9% 1, 200 000 ml @ 100 mls/hr IV . Q10H [facility] Rx#:[id number] pressure bag 12 12 Intake, IV Titration 920.197 384.389 Amount Ampicillin-Sulbactam 3 gm 100 In Sodium Chloride 0.9% 100 ml @ 200 mls/hr IVPB Q8HR [facility] Rx#:[id number] Dextrose 5% in Water 1, 75 000 ml @ 75 mls/hr IV . [id number] [facility] with Sodium Bicarb (1 Meq/ml) 150 ml Rx#:[id number] EPINEPHrine 4 mg In 295.469 204.531 Dextrose 5% in Water 250 ml @ 0.03 MCG/KG/MIN 10. 913 mls/hr IV .[id number] [facility] Rx#:[id number] Insulin Regular 100 unit 4.858 In Sodium Chloride 0.9% 100 ml @ Titrate IV .Q0M [facility] Rx#:[id number] Norepinephrine 32 mg In 13.641 Sodium Chloride 0.9% 218 ml @ 0.03 MCG/KG/MIN 1. 364 mls/hr IV .Q24H [facility] Rx#:[id number] Norepinephrine 4 mg In 11.087 Sodium Chloride 0.9% 250 ml @ 0.03 MCG/KG/MIN 11. 087 mls/hr IV .[id number] [facility] Rx#:[id number] Sodium Chloride 0.9% 1, 500 100 000 ml @ 100 mls/hr IV . Q10H [facility] Rx#:[id number] Output: Urine 40 0 Other: Voiding Method Indwelling Catheter Weight 98.3 kg ABP, PAP, CO, CI - Last 8 Hours Arterial Blood Pressure 93/70 Arterial Blood Pressure 80/41 Arterial Blood Pressure 82/43 Arterial Blood Pressure 82/42 Arterial Blood Pressure 85/48 Arterial Blood Pressure 93/53 Arterial Blood Pressure 100/59 Arterial Blood Pressure 103/60 Arterial Blood Pressure 108/62 Arterial Blood Pressure 107/61 Arterial Blood Pressure 111/63 Arterial Blood Pressure 111/62 Arterial Blood Pressure 115/62 Arterial Blood Pressure 108/58 Arterial Blood Pressure 88/44 Arterial Blood Pressure 97/52 Arterial Blood Pressure 97/52 Arterial Blood Pressure 99/49 Arterial Blood Pressure 98/52 Arterial Blood Pressure 96/52 Arterial Blood Pressure 108/58 Arterial Blood Pressure 114/60 Arterial Blood Pressure 121/64 Arterial Blood Pressure 89/49 Arterial Blood Pressure 94/53 Arterial Blood Pressure 93/53 Arterial Blood Pressure 94/53 Arterial Blood Pressure 90/52 Arterial Blood Pressure 89/49 Arterial Blood Pressure 89/49 Results CBC & Chem 7: 02/27/24 01:59 02/27/24 05:30 Labs: Abnormal Lab Results - Last 24 Hours (Table) 02/26/24 02/26/24 02/26/24 Range/Units 23:28 23:28 23:28 WBC (3.8-10.6) k/uL Hct 48.6 H (34.0-46.0) % MCV 110.2 H (80.0-100.0) fL MCHC 29.5 L (31.0-37.0) g/dL Neutrophils # (Manual) (1.3-7.7) k/uL Lymphocytes # (Manual) (1.0-4.8) k/uL Myelocytes # (Manual) (0) k/uL Nucleated RBCs (0-0) /100 WBC Macrocytosis Marked A APTT 41.8 H (22.0-30.0) sec ABG pH (7.35-7.45) ABG pCO2 (35-45) mmHg ABG pO2 (83-108) mmHg ABG HCO3 (21-25) mmol/L ABG Total CO2 (19-24) mmol/L ABG O2 Saturation (94-97) % Potassium (3.5-5.1) mmol/L Chloride (98-107) mmol/L Carbon Dioxide (22-30) mmol/L Creatinine (0.52-1.04) mg/dL Glucose (74-99) mg/dL POC Glucose (mg/dL) 407 H (70-110) mg/dL Plasma Lactic Acid Reginald (0.7-2.0) mmol/L Calcium (8.4-10.2) mg/dL Magnesium (1.6-2.3) mg/dL AST (14-36) U/L ALT (4-34) U/L Alkaline Phosphatase (38-126) U/L Troponin I (0.000-0.034) ng/mL Total Protein (6.3-8.2) g/dL Albumin (3.5-5.0) g/dL Urine Appearance (Clear) Urine Protein (Negative) Urine Glucose (UA) (Negative) Urine Blood (Negative) Urine WBC (0-5) /hpf Urine Bacteria (None) /hpf Urine Mucus (None) /hpf 02/26/24 02/26/24 02/27/24 Range/Units 23:28 23:28 00:59 WBC (3.8-10.6) k/uL Hct (34.0-46.0) % MCV (80.0-100.0) fL MCHC (31.0-37.0) g/dL Neutrophils # (Manual) (1.3-7.7) k/uL Lymphocytes # (Manual) (1.0-4.8) k/uL Myelocytes # (Manual) (0) k/uL Nucleated RBCs (0-0) /100 WBC Macrocytosis APTT (22.0-30.0) sec ABG pH (7.35-7.45) ABG pCO2 (35-45) mmHg ABG pO2 (83-108) mmHg ABG HCO3 (21-25) mmol/L ABG Total CO2 (19-24) mmol/L ABG O2 Saturation (94-97) % Potassium (3.5-5.1) mmol/L Chloride 109 H (98-107) mmol/L Carbon Dioxide 8 L* (22-30) mmol/L Creatinine 1.19 H (0.52-1.04) mg/dL Glucose 421 H (74-99) mg/dL POC Glucose (mg/dL) 383 H (70-110) mg/dL Plasma Lactic Acid Reginald (0.7-2.0) mmol/L Calcium (8.4-10.2) mg/dL Magnesium 5.0 H* (1.6-2.3) mg/dL AST 278 H (14-36) U/L ALT 224 H (4-34) U/L Alkaline Phosphatase (38-126) U/L Troponin I 0.039 H* (0.000-0.034) ng/mL Total Protein 6.2 L (6.3-8.2) g/dL Albumin (3.5-5.0) g/dL Urine Appearance (Clear) Urine Protein (Negative) Urine Glucose (UA) (Negative) Urine Blood (Negative) Urine WBC (0-5) /hpf Urine Bacteria (None) /hpf Urine Mucus (None) /hpf 02/27/24 02/27/24 02/27/24 Range/Units 01:14 01:59 01:59 WBC 21.4 H (3.8-10.6) k/uL Hct (34.0-46.0) % MCV 104.1 H D (80.0-100.0) fL MCHC 30.9 L (31.0-37.0) g/dL Neutrophils # (Manual) 10.20 H (1.3-7.7) k/uL Lymphocytes # (Manual) 10.27 H (1.0-4.8) k/uL Myelocytes # (Manual) 0.21 H (0) k/uL Nucleated RBCs 1 H (0-0) /100 WBC Macrocytosis APTT (22.0-30.0) sec ABG pH 6.91 L* (7.35-7.45) ABG pCO2 54 H (35-45) mmHg ABG pO2 134 H (83-108) mmHg ABG HCO3 11 L (21-25) mmol/L ABG Total CO2 13 L (19-24) mmol/L ABG O2 Saturation (94-97) % Potassium (3.5-5.1) mmol/L Chloride (98-107) mmol/L Carbon Dioxide (22-30) mmol/L Creatinine (0.52-1.04) mg/dL Glucose (74-99) mg/dL POC Glucose (mg/dL) (70-110) mg/dL Plasma Lactic Acid Reginald (0.7-2.0) mmol/L Calcium (8.4-10.2) mg/dL Magnesium 4.3 H (1.6-2.3) mg/dL AST (14-36) U/L ALT (4-34) U/L Alkaline Phosphatase (38-126) U/L Troponin I (0.000-0.034) ng/mL Total Protein (6.3-8.2) g/dL Albumin (3.5-5.0) g/dL Urine Appearance (Clear) Urine Protein (Negative) Urine Glucose (UA) (Negative) Urine Blood (Negative) Urine WBC (0-5) /hpf Urine Bacteria (None) /hpf Urine Mucus (None) /hpf 02/27/24 02/27/24 02/27/24 Range/Units 01:59 05:30 05:30 WBC (3.8-10.6) k/uL Hct (34.0-46.0) % MCV (80.0-100.0) fL MCHC (31.0-37.0) g/dL Neutrophils # (Manual) (1.3-7.7) k/uL Lymphocytes # (Manual) (1.0-4.8) k/uL Myelocytes # (Manual) (0) k/uL Nucleated RBCs (0-0) /100 WBC Macrocytosis APTT (22.0-30.0) sec ABG pH (7.35-7.45) ABG pCO2 (35-45) mmHg ABG pO2 (83-108) mmHg ABG HCO3 (21-25) mmol/L ABG Total CO2 (19-24) mmol/L ABG O2 Saturation (94-97) % Potassium 2.9 L (3.5-5.1) mmol/L Chloride (98-107) mmol/L Carbon Dioxide 12 L 14 L (22-30) mmol/L Creatinine 1.34 H 1.56 H (0.52-1.04) mg/dL Glucose 393 H 527 H* (74-99) mg/dL POC Glucose (mg/dL) (70-110) mg/dL Plasma Lactic Acid Reginald 10.4 H* (0.7-2.0) mmol/L Calcium 7.2 L 6.9 L (8.4-10.2) mg/dL Magnesium 3.6 H (1.6-2.3) mg/dL AST 719 H (14-36) U/L ALT 461 H (4-34) U/L Alkaline Phosphatase 187 H (38-126) U/L Troponin I (0.000-0.034) ng/mL Total Protein 5.7 L (6.3-8.2) g/dL Albumin 3.3 L (3.5-5.0) g/dL Urine Appearance (Clear) Urine Protein (Negative) Urine Glucose (UA) (Negative) Urine Blood (Negative) Urine WBC (0-5) /hpf Urine Bacteria (None) /hpf Urine Mucus (None) /hpf 02/27/24 02/27/24 02/27/24 Range/Units 06:00 06:13 08:33 WBC (3.8-10.6) k/uL Hct (34.0-46.0) % MCV (80.0-100.0) fL MCHC (31.0-37.0) g/dL Neutrophils # (Manual) (1.3-7.7) k/uL Lymphocytes # (Manual) (1.0-4.8) k/uL Myelocytes # (Manual) (0) k/uL Nucleated RBCs (0-0) /100 WBC Macrocytosis APTT (22.0-30.0) sec ABG pH 7.05 L* (7.35-7.45) ABG pCO2 57 H (35-45) mmHg ABG pO2 55 L* (83-108) mmHg ABG HCO3 16 L (21-25) mmol/L ABG Total CO2 18 L (19-24) mmol/L ABG O2 Saturation 77.3 L (94-97) % Potassium (3.5-5.1) mmol/L Chloride (98-107) mmol/L Carbon Dioxide (22-30) mmol/L Creatinine (0.52-1.04) mg/dL Glucose (74-99) mg/dL POC Glucose (mg/dL) 551 H* (70-110) mg/dL Plasma Lactic Acid Reginald (0.7-2.0) mmol/L Calcium (8.4-10.2) mg/dL Magnesium (1.6-2.3) mg/dL AST (14-36) U/L ALT (4-34) U/L Alkaline Phosphatase (38-126) U/L Troponin I (0.000-0.034) ng/mL Total Protein (6.3-8.2) g/dL Albumin (3.5-5.0) g/dL Urine Appearance Cloudy H (Clear) Urine Protein 2+ H (Negative) Urine Glucose (UA) 3+ H (Negative) Urine Blood Moderate H (Negative) Urine WBC 7 H (0-5) /hpf Urine Bacteria Rare H (None) /hpf Urine Mucus Rare H (None) /hpf 02/27/24 02/27/24 Range/Units 09:05 09:24 WBC (3.8-10.6) k/uL Hct (34.0-46.0) % MCV (80.0-100.0) fL MCHC (31.0-37.0) g/dL Neutrophils # (Manual) (1.3-7.7) k/uL Lymphocytes # (Manual) (1.0-4.8) k/uL Myelocytes # (Manual) (0) k/uL Nucleated RBCs (0-0) /100 WBC Macrocytosis APTT (22.0-30.0) sec ABG pH 6.99 L* (7.35-7.45) ABG pCO2 70 H (35-45) mmHg ABG pO2 46 L* (83-108) mmHg ABG HCO3 17 L (21-25) mmol/L ABG Total CO2 (19-24) mmol/L ABG O2 Saturation 66.0 L (94-97) % Potassium (3.5-5.1) mmol/L Chloride (98-107) mmol/L Carbon Dioxide (22-30) mmol/L Creatinine (0.52-1.04) mg/dL Glucose (74-99) mg/dL POC Glucose (mg/dL) 590 H* (70-110) mg/dL Plasma Lactic Acid Reginald (0.7-2.0) mmol/L Calcium (8.4-10.2) mg/dL Magnesium (1.6-2.3) mg/dL AST (14-36) U/L ALT (4-34) U/L Alkaline Phosphatase (38-126) U/L Troponin I (0.000-0.034) ng/mL Total Protein (6.3-8.2) g/dL Albumin (3.5-5.0) g/dL Urine Appearance (Clear) Urine Protein (Negative) Urine Glucose (UA) (Negative) Urine Blood (Negative) Urine WBC (0-5) /hpf Urine Bacteria (None) /hpf Urine Mucus (None) /hpf
[2024-02-27 14:50] VITALS: BP 97/72; PULSE 48; RESP 0
[2024-02-27 19:02] LABS: LDL Cholesterol,Calculated 91.6 mg/dL (0.0-131.0)
--- NOTE | 2024-02-28 04:39 | EEG ---
ELECTROENCEPHALOGRAM REPORT PREAMBLE: This is a 43-year-old female with cardiac arrest. EEG FINDINGS: This is a 21-channel portable EEG recorded with video component, utilizing 10/20 international system with referential and bipolar montages. The recording starts and continues with presence of severely attenuated, probable isoelectric EEG involving bihemispheric region. No discernible brain waves were seen in the entire study. Different stages of sleep were not seen. No focal or generalized epileptiform activity was seen. IMPRESSION: This is a severely abnormal EEG due to background suppression with lack of any discernible brain waves activity. This may suggest isoelectric pattern, which can be seen with cerebral . Clinical correlation is also recommended. No epileptiform activity was seen. MMODL / IJN: [id number] /
--- NOTE | 2024-02-28 07:07 | CA ---
Transthoracic Echo Report Name: Susana Aguero Age: 43 Gender: F : 1980 Exam Date: 02/27/2024 09:08 Exam Location: [facility] Ht (in): 65 Wt (lb): 213 Ordering Physician: Dante Villegas MD ([id number]) Attending/Referring Phys: Admission Liaison Pearl Stephen RDCS Procedure CPT: Indications: Out of hospital cardiac arrest Cardiac Hx: Limited echo to rule out tamponade per Dr. Johnson, pt crashing Technical Quality: Technically difficult study Contrast 1: Total Dose (mL): Contrast 2: Total Dose (mL): MEASUREMENTS (Male / Female) Normal Values FINDINGS Left Ventricle Right Ventricle Right Atrium Left Atrium Mitral Valve Aortic Valve Tricuspid Valve Pulmonic Valve Pericardium No pericardial effusion. Aorta CONCLUSIONS Technically difficult study No pericardial effusion Previewed by: Dr. Huey Baker MD (Electronically Signed) Final Date: 28 February 2024 07:06
--- NOTE | 2024-02-28 10:20 | P.CNNES ---
History of Present Illness Consult date: 02/27/24 Requesting physician: Coral Goyal Reason for Consult: Anoxic brain injury History of Present Illness: Patient is a 43-year-old female came to the hospital by ambulance yesterday at 11:26 PM for cardiac arrest. Patient apparently was at home after being out for the evening and drinking. Daughter states that she heard a "fired" and found her mom on the floor. CPR was started and EMS was called. Downtime almost half hour. Patient was taken to [facility] [facility] and cath was unremarkable. She remains in the ICU on the ventilator with no sedation. She does not respond to pain is not breathing over the ventilator and pupils are dilated and fixed. Neurology consulted for evaluation. As per EMS flowsheet, they received a call last night at 10:28 PM. When they arrived, patient was laying supine on the kitchen floor of her home with PD doing compression only CPR. CPR continued by fire department before placing the Sumanth device. Patient was found pulseless, apneic. Daughter states that her mother was out drinking with friends and came home and drank more. She states she heard her in the kitchen and then heard her fall, she went out to find her not breathing and she had vomit coming out of her mouth. bus driver/monitor revealed ventricular fibrillation. Patient was given first shock, epi was given along with Narcan. Patient was intubated, but went to the esophagus. Patient had copious amount of vomiting that was suctioned. Second pulse checked and there was a pulse but lost it soon after and CPR continued. Patient found to be in V-fib again and second shock given and another epi was found to have torsades. 2 g of magnesium sulfate was given over 2 minutes. Patient did have a pulse. Patient lost pulse again en-route to ED. As per EMS flowsheet, estimated time of arrest was 10:25 PM, first CPR started 10:28 PM ROSC time 10:48 PM Patient's vitals on arrival was 96/52, pulse rate 89, temperature 91.4. Most recent temperature 94.3. Blood test shows normal CBC with elevated MCV 110, platelets are normal. PT/INR normal, PTT 41.8. pH 6.91, pCO2 54, pO2 134. Sodium and potassium normal,, drug site 8. Renal functions normal, glucose 407. Lactate 10.4. AST 278, ALT 224, troponin is elevated 0.039. TSH normal, blood alcohol level elevated 35. Repeat blood glucose is going around 551. Patient's hemoglobin A1c 5.4. Urine drug screen ordered, came back negative. Urine ke tones negative. CT head revealed evidence of severe diffuse hypoxic ischemic injury. I personally reviewed CT head there is loss of ochoa-white junction, signs of early generalized cerebral edema, with some hypodensity in the basal ganglia. CTA of the chest showed some dependent atelectasis/consolidation in the upper and lower lobes. No pulmonary embolism. Findings suggestive pulmonary arterial hypertension. Chest x-ray showed right perihilar airspace opacities correlate for pneumonia. Home medications include albuterol, omeprazole, Mirena Review of Systems ROS unobtainable: due to endotracheal tube, due to mental status Past Medical History Past Medical History: Unable to Obtain History of Any Multi-Drug Resistant Organisms: None Reported Past Surgical History: Unable to Obtain Additional Past Surgical History / Comment(s): ovarian cycst removal Past Anesthesia/Blood Transfusion Reactions: Unable to Obtain Past Psychological History: Unable to Obtain Smoking Status: Current every day smoker Medications and Allergies Home Medications Medication Instructions Recorded Confirmed Type Albuterol Inhaler [Ventolin Hfa 2 puff INHALATION RT-Q4H PRN 02/27/24 02/27/24 History Inhaler] Cetirizine HCl [Zyrtec] 10 mg PO DAILY 02/27/24 02/27/24 History Omeprazole [PriLOSEC] 20 mg PO DAILY 02/27/24 02/27/24 History levonorgestreL [Mirena] 1 implant INTRAUTERI DIRECTED 02/27/24 02/27/24 History Allergies Allergy/AdvReac Type Severity Reaction Status Date / Time Unable to Assess Allergy Verified 02/26/24 23:38 Physical Examination - Vital Signs Vital Signs: Vital Signs Temp Pulse Resp BP Pulse Ox FiO2 02/27/24 12:00 94.3 F L 101 H 34 H 98/54 75 L 100 02/27/24 11:45 100 34 H 74 L 02/27/24 11:30 100 34 H 77/55 73 L 02/27/24 11:18 100 02/27/24 11:15 101 H 3 L 81/55 71 L 02/27/24 11:00 101 H 34 H 70 L 02/27/24 10:45 101 H 34 H 81/48 69 L 02/27/24 10:30 101 H 34 H 70 L 02/27/24 10:15 101 H 34 H 93/66 66 L 02/27/24 10:00 103 H 34 H 74/50 60 L 02/27/24 09:45 102 H 34 H 60 L 02/27/24 09:30 103 H 34 H 77/60 62 L 02/27/24 09:15 103 H 34 H 70 L 02/27/24 09:00 100 30 H 84/67 75 L 02/27/24 08:45 101 H 30 H 81 L 02/27/24 08:30 101 H 30 H 81/57 80 L 02/27/24 08:20 100 02/27/24 08:15 101 H 30 H 85 L 02/27/24 08:00 93.6 F L 101 H 30 H 93/71 85 L 100 02/27/24 07:45 101 H 30 H 85 L 02/27/24 07:30 102 H 30 H 83 L 02/27/24 07:15 102 H 30 H 99/70 85 L 02/27/24 07:00 104 H 30 H 77/26 83 L 02/27/24 06:45 104 H 30 H 77/26 78 L 02/27/24 06:30 104 H 30 H 89/63 83 L 02/27/24 06:15 103 H 30 H 89/63 83 L 02/27/24 06:00 103 H 24 97/57 84 L 02/27/24 05:45 103 H 24 97/57 85 L 02/27/24 05:30 103 H 24 94/58 85 L 02/27/24 05:15 103 H 24 94/58 87 L 02/27/24 05:00 92.3 F L 102 H 24 88 L 100 02/27/24 04:45 101 H 24 89 L 100 02/27/24 04:30 101 H 24 93/62 91 L 100 02/27/24 04:15 101 H 24 93/62 92 L 100 02/27/24 04:02 100 02/27/24 04:00 101 H 24 99/55 92 L 100 02/27/24 03:45 99 24 99/55 91 L 100 02/27/24 03:37 100 02/27/24 03:30 98 24 98/54 86 L 100 02/27/24 03:15 98 24 98/54 88 L 100 02/27/24 03:00 94 24 99/55 89 L 60 02/27/24 02:45 91.4 F L 92 24 99/55 90 L 60 02/27/24 02:30 90 24 99/55 92 L 02/27/24 02:15 89 24 93 L 02/27/24 02:00 87 24 92 L 02/27/24 01:45 82 16 02/27/24 01:30 76 14 60 02/27/24 01:23 100 02/27/24 01:15 73 18 02/27/24 01:00 70 5 L 02/27/24 00:58 10 L 02/27/24 00:32 100 02/26/24 23:30 100 Intake and Output 02/26/24 02/27/24 02/27/24 22:59 06:59 14:59 Intake Total 2126.717 1864.698 Output Total 40 0 Balance 9529.810 8561.698 Intake: IV 476 855 0.9 @ KVO 40 Ampicillin-Sulbactam 3 gm 100 In Sodium Chloride 0.9% 100 ml @ 200 mls/hr IVPB Q8HR [facility] Rx#:[id number] Dextrose 5% in Water 1, 300 000 ml @ 75 mls/hr IV . [id number] [facility] with Sodium Bicarb (1 Meq/ml) 150 ml Rx#:[id number] Potassium Chloride 10 meq 200 In Water For Injection 1 100ml.bag @ 100 mls/hr IVPB Q1HR [facility] Rx#: [id number] Sodium Chloride 0.9% 1, 200 000 ml @ 100 mls/hr IV . Q10H [facility] Rx#:[id number] pressure bag 12 15 Intake, IV Titration 920.197 543.698 Amount Ampicillin-Sulbactam 3 gm 100 In Sodium Chloride 0.9% 100 ml @ 200 mls/hr IVPB Q8HR [facility] Rx#:[id number] Dextrose 5% in Water 1, 75 000 ml @ 75 mls/hr IV . [id number] [facility] with Sodium Bicarb (1 Meq/ml) 150 ml Rx#:[id number] EPINEPHrine 16 mg In 85.244 Dextrose 5% in Water 250 ml @ 0.03 MCG/KG/MIN 2. 765 mls/hr IV .Q24H [facility] Rx#:[id number] EPINEPHrine 4 mg In 295.469 204.531 Dextrose 5% in Water 250 ml @ 0.03 MCG/KG/MIN 10. 913 mls/hr IV .[id number] [facility] Rx#:[id number] Insulin Regular 100 unit 44.575 In Sodium Chloride 0.9% 100 ml @ Titrate IV .Q0M [facility] Rx#:[id number] Norepinephrine 32 mg In 13.641 Sodium Chloride 0.9% 218 ml @ 0.03 MCG/KG/MIN 1. 364 mls/hr IV .Q24H [facility] Rx#:[id number] Norepinephrine 4 mg In 11.087 Sodium Chloride 0.9% 250 ml @ 0.03 MCG/KG/MIN 11. 087 mls/hr IV .[id number] [facility] Rx#:[id number] Sodium Chloride 0.9% 1, 500 100 000 ml @ 100 mls/hr IV . Q10H [facility] Rx#:[id number] Vasopressin 20 unit In 34.348 Sodium Chloride 0.9% 50 ml @ 0.03 UNITS/MIN 4.59 mls/hr IV .Q11H7M [facility] Rx# :[id number] Output: Urine 40 0 Other: Voiding Method Indwelling Catheter Indwelling Catheter Weight 98.3 kg ABP, PAP, CO, CI - Last 8 Hours Arterial Blood Pressure 78/63 Arterial Blood Pressure 72/57 Arterial Blood Pressure 175/158 Arterial Blood Pressure 79/47 Arterial Blood Pressure 87/66 Arterial Blood Pressure 86/49 Arterial Blood Pressure 90/51 Arterial Blood Pressure 88/48 Arterial Blood Pressure 93/70 Arterial Blood Pressure 80/41 Arterial Blood Pressure 82/43 Arterial Blood Pressure 82/42 Arterial Blood Pressure 85/48 Arterial Blood Pressure 93/53 Arterial Blood Pressure 100/59 Arterial Blood Pressure 103/60 Arterial Blood Pressure 108/62 Arterial Blood Pressure 107/61 Arterial Blood Pressure 111/63 Arterial Blood Pressure 111/62 Arterial Blood Pressure 115/62 Arterial Blood Pressure 108/58 Arterial Blood Pressure 88/44 Arterial Blood Pressure 97/52 Arterial Blood Pressure 97/52 Arterial Blood Pressure 99/49 Arterial Blood Pressure 98/52 Arterial Blood Pressure 96/52 Arterial Blood Pressure 108/58 Patient is a middle aged female, who is deeply comatose with GCS of 3. No obvious seizure-like activity noted. Patient is comatose, not responding to calling her name, or deep painful stim aurelia. On cranial nerve examination, pupils are dilated, fixed, nonreactive. Oculocephalics absent, corneals absent. Patient is not breathing over the ventilator. Gag and cough reflex are absent. On muscle strength testing, patient not responding to verbal or painful stimuli. No withdrawal response. Deep tendon reflexes are all absent plantars are flat. Sensory to touch temperature or pinprick shows no response. Cerebellar cannot be checked. Tone and bulk of muscles normal. Gait cannot be checked On general examination, there is no carotid bruit or murmur, S1-S2 audible. Chest is clear on consultation. Abdomen is protuberant, but soft nontender. No organomegaly, bowel sounds present. Peripheral pulses are present. No peripheral edema. Results - Laboratory Findings CBC and BMP: 02/27/24 01:59 02/27/24 05:30 Abnormal Lab Findings: Abnormal Labs 02/26/24 02/26/24 02/26/24 23:28 23:28 23:28 WBC Hct 48.6 H MCV 110.2 H MCHC 29.5 L Neutrophils # (Manual) Lymphocytes # (Manual) Myelocytes # (Manual) Nucleated RBCs Macrocytosis Marked A APTT 41.8 H ABG pH ABG pCO2 ABG pO2 ABG HCO3 ABG Total CO2 ABG O2 Saturation Potassium Chloride Carbon Dioxide Creatinine Glucose POC Glucose (mg/dL) 407 H Plasma Lactic Acid Reginald Calcium Magnesium AST ALT Alkaline Phosphatase Troponin I Total Protein Albumin Urine Appearance Urine Protein Urine Glucose (UA) Urine Blood Urine WBC Urine Bacteria Urine Mucus 02/26/24 02/26/24 02/27/24 23:28 23:28 00:59 WBC Hct MCV MCHC Neutrophils # (Manual) Lymphocytes # (Manual) Myelocytes # (Manual) Nucleated RBCs Macrocytosis APTT ABG pH ABG pCO2 ABG pO2 ABG HCO3 ABG Total CO2 ABG O2 Saturation Potassium Chloride 109 H Carbon Dioxide 8 L* Creatinine 1.19 H Glucose 421 H POC Glucose (mg/dL) 383 H Plasma Lactic Acid Reginald Calcium Magnesium 5.0 H* AST 278 H ALT 224 H Alkaline Phosphatase Troponin I 0.039 H* Total Protein 6.2 L Albumin Urine Appearance Urine Protein Urine Glucose (UA) Urine Blood Urine WBC Urine Bacteria Urine Mucus 02/27/24 02/27/2424 01:14 01:59 01:59 WBC 21.4 H Hct MCV 104.1 H D MCHC 30.9 L Neutrophils # (Manual) 10.20 H Lymphocytes # (Manual) 10.27 H Myelocytes # (Manual) 0.21 H Nucleated RBCs 1 H Macrocytosis APTT ABG pH 6.91 L* ABG pCO2 54 H ABG pO2 134 H ABG HCO3 11 L ABG Total CO2 13 L ABG O2 Saturation Potassium Chloride Carbon Dioxide Creatinine Glucose POC Glucose (mg/dL) Plasma Lactic Acid Reginald Calcium Magnesium 4.3 H AST ALT Alkaline Phosphatase Troponin I Total Protein Albumin Urine Appearance Urine Protein Urine Glucose (UA) Urine Blood Urine WBC Urine Bacteria Urine Mucus 02/27/24 02/27/24 02/27/24 01:59 05:30 05:30 WBC Hct MCV MCHC Neutrophils # (Manual) Lymphocytes # (Manual) Myelocytes # (Manual) Nucleated RBCs Macrocytosis APTT ABG pH ABG pCO2 ABG pO2 ABG HCO3 ABG Total CO2 ABG O2 Saturation Potassium 2.9 L Chloride Carbon Dioxide 12 L 14 L Creatinine 1.34 H 1.56 H Glucose 393 H 527 H* POC Glucose (mg/dL) Plasma Lactic Acid Reginald 10.4 H* Calcium 7.2 L 6.9 L Magnesium 3.6 H AST 719 H ALT 461 H Alkaline Phosphatase 187 H Troponin I Total Protein 5.7 L Albumin 3.3 L Urine Appearance Urine Protein Urine Glucose (UA) Urine Blood Urine WBC Urine Bacteria Urine Mucus 02/27/24 02/27/24 02/27/24 06:00 06:13 08:33 WBC Hct MCV MCHC Neutrophils # (Manual) Lymphocytes # (Manual) Myelocytes # (Manual) Nucleated RBCs Macrocytosis APTT ABG pH 7.05 L* ABG pCO2 57 H ABG pO2 55 L* ABG HCO3 16 L ABG Total CO2 18 L ABG O2 Saturation 77.3 L Potassium Chloride Carbon Dioxide Creatinine Glucose POC Glucose (mg/dL) 551 H* Plasma Lactic Acid Reginald Calcium Magnesium AST ALT Alkaline Phosphatase Troponin I Total Protein Albumin Urine Appearance Cloudy H Urine Protein 2+ H Urine Glucose (UA) 3+ H Urine Blood Moderate H Urine WBC 7 H Urine Bacteria Rare H Urine Mucus Rare H 02/27/24 02/27/24 02/27/24 09:05 09:24 10:22 WBC Hct MCV MCHC Neutrophils # (Manual) Lymphocytes # (Manual) Myelocytes # (Manual) Nucleated RBCs Macrocytosis APTT ABG pH 6.99 L* ABG pCO2 70 H ABG pO2 46 L* ABG HCO3 17 L ABG Total CO2 ABG O2 Saturation 66.0 L Potassium Chloride Carbon Dioxide Creatinine Glucose POC Glucose (mg/dL) 590 H* 539 H* Plasma Lactic Acid Reginald Calcium Magnesium AST ALT Alkaline Phosphatase Troponin I Total Protein Albumin Urine Appearance Urine Protein Urine Glucose (UA) Urine Blood Urine WBC Urine Bacteria Urine Mucus 02/27/24 02/27/24 02/27/24 10:57 11:13 12:07 WBC Hct MCV MCHC Neutrophils # (Manual) Lymphocytes # (Manual) Myelocytes # (Manual) Nucleated RBCs Macrocytosis APTT ABG pH ABG pCO2 ABG pO2 ABG HCO3 ABG Total CO2 ABG O2 Saturation Potassium Chloride Carbon Dioxide Creatinine Glucose POC Glucose (mg/dL) 529 H* 504 H* Plasma Lactic Acid Reginald 8.4 H* Calcium Magnesium AST ALT Alkaline Phosphatase Troponin I Total Protein Albumin Urine Appearance Urine Protein Urine Glucose (UA) Urine Blood Urine WBC Urine Bacteria Urine Mucus Assessment and Plan Assessment: * [id number], witnessed cardiac arrest, with downtime of at 20 minutes (per EMS report). Patient showing no signs of cortical or brainstem function, comatose with GCS of 3. CT head revealed evidence of diffuse cerebral edema consistent with severe anoxic encephalopathy. * Alcoholism, with blood alcohol level 35 * Hypothermia, improving * Macrocytosis, likely due to alcoholism * Cardiac cath showed no coronary disease * Lactic acidosis * Severe metabolic acidosis * Hyperglycemia, unclear cause, no history of diabetes * Acute kidney injury, due to cardiac arrest * Shock liver Plan: * CT head revealed evidence of severe diffuse hypoxic ischemic injury. On my r eview, there is loss of ochoa-white differentiation, and appearance of generalized cerebral edema. Areas of hypodensity seen in the basal ganglia, likely due to ischemia. * Hypertonic saline 3% at 75 cc/h was recommended. * Stat EEG was performed, which was severely abnormal EEG due to background supp ression with lack of any discernible brainwave activity. This may suggest isoelectric pattern which can be seen with cerebral . Clinical correlation is recommended. No epileptiform activity was seen. * Clinically patient has no cortical or brainstem function noticeable. * Patient is hypotensive, on maximal pressors. Patient is impending another cardiac arrest. * I had prolonged discussion with family members regarding patient's current condition and overall prognosis, which appears very poor based upon all factors mentioned above. After their mutual discussion, they decided patient to be made comfort care. * Patient was made no code. Also discussed with the nursing staff and ICU team. * Thank you for the consult. Time with Patient: Greater than 30
--- NOTE | 2024-03-03 10:17 | P.DS ---
Providers Date of admission: 02/27/24 00:23 Expected date of discharge: 02/27/24 Attending physician: Anahi Corrigan Consults: 02/27/24 00:18 Consult Physician Stat Consulting Provider: Dante Villegas Consult Reason/Comments: Cardiac arrest, possible STEMI Do you want consulting provider notified?: Yes Consult Physician Urgent Consulting Provider: Steve Johnson Consult Reason/Comments: [id number] cardiac arrest with ROSC Do you want consulting provider notified?: Already Contacted 02/27/24 08:20 Consult Physician Urgent Consulting Provider: Shima Barry Consult Reason/Comments: Anoxic brain injury Do you want consulting provider notified?: Yes 02/27/24 08:21 Consult Physician Urgent Consulting Provider: Gifty Justice Consult Reason/Comments: SHY Do you want consulting provider notified?: Yes 02/27/24 10:31 Consult Physician Routine Consulting Provider: Kevin Naranjo Consult Reason/Comments: Leukocytosis Do you want consulting provider notified?: Yes Primary care physician: Jamil Holguin MD Hospital Course: Discharge diagnoses; Cardiac arrest V-fib arrest Episode of torsades Vent dependent respiratory failure Acute kidney injury Acute transaminitis Anion gap metabolic acidosis DKA Hospital course; patient is a 43-year-old lady with past medical history significant for ovarian cyst presented the ER for cardiac arrest. History is limited and is obtained from EMR, according to it patient was found laying on the floor by her daughter. Patient daughter noted that the patient was under stress for the last few days. Patient had been complaining of abdominal pain and was diagnosed with ovarian cyst which was being managed conservatively. Patient apparently went out to drink in the evening and when she came back her daughter who was there heard a loud thump. When she went to check on her she was found laying on the floor. EMS was called, CPR was initiated by daughter and carried on by the EMS. ROSC was obtained after 1 round of defibrillation, ACLS and compressions. On route to the ER, patient had episode of torsades for which she obtained magnesium and defibrillation. Patient was intubated on the field. Initial lab work done in the ER showed WBC 6.8, hemoglobin 14.3, platelet count 189, sodium 142, potassium 4, chloride 109, carbon dioxide 8, BUN 9, creatinine 0.19, glucose 421 magnesium 5, AST 278, ALT 224 Patient admitted to internal medicine service Patient was admitted to ICU, multiple consultants were seen this patient including critical care, cardiology, neurology, nephrology. Patient was intubated, not doing well, was on multiple pressors pressors. All specialist discussed with patient's family regarding patient poor prognosis and CODE STATUS was changed to DNR. Patient was pronounced on 02/27/2024 at 1402 p.m. Dictation was produced using [employer] dictation software. please excuse any grammatical, word or spelling errors. Patient Condition at Discharge: Serious Plan - Discharge Summary New Discharge Prescriptions: No Action Albuterol Inhaler [Ventolin Hfa Inhaler] 2 puff INHALATION RT-Q4H PRN PRN Reason: Shortness Of Breath Omeprazole [PriLOSEC] 20 mg PO DAILY Cetirizine HCl [Zyrtec] 10 mg PO DAILY levonorgestreL [Mirena] 1 implant INTRAUTERI DIRECTED Discharge Medication List Albuterol Inhaler [Ventolin Hfa Inhaler] 2 puff INHALATION RT-Q4H PRN 02/27/24 [History] Cetirizine HCl [Zyrtec] 10 mg PO DAILY 02/27/24 [History] Omeprazole [PriLOSEC] 20 mg PO DAILY 02/27/24 [History] levonorgestreL [Mirena] 1 implant INTRAUTERI DIRECTED 02/27/24 [History] Follow up Appointment(s)/Referral(s): Jamil Holguin MD [Primary Care Provider] - 1 Week Discharge Disposition: - Preliminary Cause of Preliminary Cause of : V-fib, torsade
== END 2024-02-27 20:11 | disposition expired | DRG 286 ==
LOC: EC 23:26 → 2SICU 02-27 00:23
PROVIDERS: ADMIT Hospitalist; ATTEND Hospitalist
PROC: B2111ZZ Fluoroscopy of Multiple Coronary Arteries using Low Osmolar Contrast (ICD-10-PCS; 2024-02-27)
PROC: 5A1935Z Respiratory Ventilation, Less than 24 Consecutive Hours (ICD-10-PCS; 2024-02-27)
PROC: 0BH17EZ Insertion of Endotracheal Airway into Trachea, Via Natural or Artificial Opening (ICD-10-PCS; 2024-02-27)
PROC: 06HY33Z Insertion of Infusion Device into Lower Vein, Percutaneous Approach (ICD-10-PCS; 2024-02-27)
PROC: 3E033XZ Introduction of Vasopressor into Peripheral Vein, Percutaneous Approach (ICD-10-PCS; 2024-02-27)
PROC: 4A023N7 Measurement of Cardiac Sampling and Pressure, Left Heart, Percutaneous Approach (ICD-10-PCS; principal; 2024-02-27 00:07)
DX: I46.9 Cardiac arrest, cause unspecified (principal); G93.6 Cerebral edema; J96.01 Acute respiratory failure with hypoxia; J96.02 Acute respiratory failure with hypercapnia; J69.0 Pneumonitis due to inhalation of food and vomit; K72.01 Acute and subacute hepatic failure with coma; N17.0 Acute kidney failure with tubular necrosis; R40.2312 Coma scale, best motor response, none, at arrival to emergency department; R40.2112 Coma scale, eyes open, never, at arrival to emergency department; R40.2212 Coma scale, best verbal response, none, at arrival to emergency department; E87.4 Mixed disorder of acid-base balance; G93.1 Anoxic brain damage, not elsewhere classified; J98.11 Atelectasis; Z66 Do not resuscitate; Z51.5 Encounter for palliative care; I47.21 Torsades de pointes; I49.01 Ventricular fibrillation; D75.89 Other specified diseases of blood and blood-forming organs; F10.229 Alcohol dependence with intoxication, unspecified; F17.200 Nicotine dependence, unspecified, uncomplicated; I95.89 Other hypotension; N83.209 Unspecified ovarian cyst, unspecified side; E66.9 Obesity, unspecified; Y90.1 Blood alcohol level of 20-39 mg/100 ml; Z68.36 Body mass index [BMI] 36.0-36.9, adult; Z79.899 Other long term (current) drug therapy; Z82.49 Family history of ischemic heart disease and other diseases of the circulatory system
CPT/HCPCS: 31500; 36415; 36556; 70450; 71045; 71275; 76770; 80048; 80053; 80061; 80306; 80320; 81001; 82805; 83036; 83605; 83735; 83880; 84443; 84484; 85025; 85610; 85730; 92950; 93005; 93308; 93458; 94002; 95822; 96374; 99291